=== PATIENT | male | born 1985 | race Caucasian/White ===

== ENCOUNTER 2018-07-21 14:03 | Emergency (ER) | payer OTHER, MEDICAID, SELFPAY ==
[2018-07-21 14:06] VITALS: BP 150/94; PULSE 82; RESP 18; TEMP 36.4; O2SAT 98
--- NOTE | 2018-07-21 14:13 | DI.RAD.S_ITS ---
PROCEDURE: XR WRIST RT MIN 3V INDICATIONS: penetrated by nail. TECHNIQUE: 4 views of the wrist were acquired. COMPARISON: None. FINDINGS: Bones: No fractures or dislocations. No suspicious bony lesions. Scaphoid view: Scaphoid is grossly intact. Soft tissues: No suspicious soft tissue calcifications. IMPRESSION: No acute wrist fracture or dislocation. No radiopaque foreign body is seen. Dictated by: Denis Suarez M.D. on 07/21/2018 at 14:23 Approved by: Denis Suarez M.D. on 07/21/2018 at 14:31
--- NOTE | 2018-07-21 17:06 | ED_ITS ---
HPI - Extremity Injury (Upper) General Chief Complaint: Extremity Injury, Upper Stated Complaint: PUNCTURE WOUND PADMINI NAIL Time Seen by Provider: 07/21/18 14:35 Source: patient Mode of arrival: ambulatory Limitations: no limitations History of Present Illness HPI narrative: Patient is a 32-year-old male here for evaluation of a puncture wound to his right hand. He states that he was reaching for a board when he punctured his right hand with a padmini nail. He states that was sticking out of the border approximately 2 which is. He feels like the whole 2 in went into his hand. He did wash it out afterwards. He is not up-to-date on tetanus. No other injuries reported from the event. Related Data Previous Rx's Medication Instructions Recorded cephalexin [Keflex] 500 mg PO QID 5 Days #20 cap 07/21/18 Allergies Allergy/AdvReac Type Severity Reaction Status Date / Time egg yolk [EGG YOLK] Allergy Unknown Unverified 09/08/17 12:37 penicillin V [PENICILLIN V] Allergy Unknown Unverified 09/08/17 12:37 venom-honey bee Allergy Unknown Unverified 09/08/17 12:37 [BEE VENOM (HONEY BEE)] Review of Systems Constitutional Denies fever(s) Musculoskeletal Comments: Some mild wrist pain Integumentary/Breasts Comments: Puncture wound to the palm of his right hand Neurologic Comments: No change in sensation to the right hand Hematologic/Lymphatic Denies easy bleeding and Denies easy bruising [facility] Medical History Healthy adult (Acute) Social History Smoking Status: Never smoker Social History Smoking Status: Never smoker Exam Initial Vital Signs Initial Vital Signs: Vital Signs Temperature 97.5 F L 07/21/18 14:06 Pulse Rate 82 07/21/18 14:06 Respiratory Rate 18 07/21/18 14:06 Blood Pressure 150/94 H 07/21/18 14:06 Pulse Oximetry 98 07/21/18 14:06 Const General: cooperative, healthy appearing, comfortable, well developed, well groomed and No acute distress Orientation: alert, awake and oriented x3 Cardio Pulses: radial pulses present on the right Skin Other: Pinpoint puncture wound to the palm of the right wrist just distal to the wrist joint. Neuro General: alert, awake and oriented x3 Sensory Exam: no sensory deficits noted Extrem General: normal to inspection, full ROM and capillary refill normal Psych Appearance: grossly normal and well kempt Course Orders Ordered: ED Orders 07/21/18 14:13 XR wrist RT min 3V Stat Discontinued Medications Diphtheria/Tetanus/Acell Pertussis (Adacel) 0.5 ml IM .ONCE ONE Stop: 07/21/18 14:41 Last Admin: 07/21/18 17:13 Dose: 0.5 ml Vital Signs - 8 hr 07/21/18 14:06 Temperature 97.5 F L Pulse Rate 82 Respiratory Rate 18 Blood Pressure 150/94 H Pulse Oximetry 98 MDM - Extremity Injury (Upper) Imaging Data Wrist x-ray: Radiologist's impression: [address] [address] XRay Report Signed Patient: Young Cohn JMR#: [id number] : 1985Acct:[id number] Age/Sex: 32 / MDate of Service: 07/21/18 Loc: ED Accession Number: [id number] Procedure: XR wrist RT min 3V Ordering Provider: David Marques D.O. PROCEDURE: XR WRIST RT MIN 3V INDICATIONS: penetrated by nail. TECHNIQUE: 4 views of the wrist were acquired. COMPARISON: None. FINDINGS: Bones: No fractures or dislocations. No suspicious bony lesions. Scaphoid view: Scaphoid is grossly intact. Soft tissues: No suspicious soft tissue calcifications. IMPRESSION: No acute wrist fracture or dislocation. No radiopaque foreign body is seen. Dictated by: Denis Suarez M.D. on 07/21/2018 at 14:23 Approved by: Denis Suarez M.D. on 07/21/2018 at 14:31 [facility] Narrative Medical decision making narrative: Patient is neurovascular intact. X-ray shows no fractures or foreign bodies. His tetanus was updated. I did prescribe him antibiotics given the fact that this was a dirty wound and it potentially penetrated up to an inch into his skin. He did cleanse the wound prior to arrival. He is allergic to penicillin but will give him a prescription for Keflex. Patient is given return precautions. He expressed understanding and agreement with plan. Discharge Plan Departure Patient Disposition: Home Clinical Impression: Puncture wound of hand, right Qualifiers: Encounter type: initial encounter Foreign body presence: without foreign body Qualified Code(s): S61.431A - Puncture wound without foreign body of right hand, initial encounter Instructions: DI for Puncture Wound Activity Restrictions/Additional Instructions: Keep your hand clean. You can use soap and water. Take antibiotics as directed. Return to the emergency department for any new or worsening symptoms Prescriptions: New cephalexin [Keflex] 500 mg capsule 500 mg PO QID 5 Days Qty: 20 RF: 0
[2018-07-21] MEDS: TET,DIPH,PERTUSS(ACELL),VAC/PF 0.5 ML SYRINGE IM (17:13)
[2018-07-21 17:57] VITALS: BP 137/85; PULSE 97; RESP 20; O2SAT 97
== END 2018-07-21 18:00 | disposition home or self-care (01) ==
PROVIDERS: Emergency Provider Emergency Medicine
DX: S61.431A Puncture wound without foreign body of right hand, initial encounter (principal); W45.0XXA Nail entering through skin, initial encounter
CPT/HCPCS: 73110; 90471; 99282; 99283; 90715

== ENCOUNTER 2018-08-26 09:52 | Observation (INO) | payer OTHER, MEDICAID, SELFPAY ==
[2018-08-26] VITALS (10 sets, daily range): BP systolic 109–147; BP diastolic 50–84; PULSE 63–84; RESP 16–18; TEMP 36.6–36.9; O2SAT 91–100; BMI 34.0
[2018-08-26] MEDS: KETOROLAC 60 MG/2 ML VIAL 30 MG IV (10:52)
[2018-08-26] MEDS: ONDANSETRON 4 MG/2 ML INJ IV ×2 (10:53→15:37)
[2018-08-26 10:58] LABS: Add Manual Diff / Slide Review NO; Basophils Absolute Auto 100 /uL (0-100); Basophils Percent Auto 0.8 % (0-2); Eosinophils Absolute Auto 100 /uL (0-450); Eosinophils Percent Auto 0.6 % (2-4); Hematocrit 43.6 % (41-53); Hemoglobin 15.3 g/dL (13.5-17.5); Lymphocytes Absolute Auto 2900 /uL (1100-4500); Mean Corpuscular HGB Conc 35.1 % (30-36); Mean Corpuscular Hemoglobin 28.7 PG (26-34); Mean Corpuscular Volume 81.8 fL (80-100); Monocytes Absolute Auto 700 /uL (0-900); Monocytes Percent Auto 5.3 % (3-14); Neutrophils Absolute Auto 9900 /uL (1500-7000); Neutrophils Percent Auto 72.3 % (50-75); Platelet Count 504 X10^3/uL (150-400); Red Blood Cell Count 5.33 X10^6/uL (4.5-5.9); Red Cell Distribution Width 13.4 % (11.6-14.8); White Blood Cell Count 13.8 X10^3/uL (4.5-11.0)
[2018-08-26 11:00] LABS: INR 1.1 (0.9-1.3); Prothrombin Time 12.5 SECONDS (10.1-12.7)
[2018-08-26 11:03] LABS: PTT Partial Thromboplastin Tim 31 SECONDS (26.4-36.2)
--- NOTE | 2018-08-26 11:04 | ED.ABDPAIN ---
HPI - Abdominal Pain General Chief Complaint: Abdominal Pain Stated Complaint: abdominal pain Time Seen by Provider: 08/26/18 10:50 Source: patient and family () Mode of arrival: ambulatory Limitations: no limitations History of Present Illness HPI narrative: This is a 32-year-old male comes with complaint of abdominal pain. Patient states he has had symptoms slightly for about 2 weeks but particularly for the last week. Has been mostly in the upper abdomen. States sort of starts bilateral in the ribs and radiates to the middle. Patient states it was sort of coming in waves until last night when it became more constant. And has been increasingly constant and intense. The patient states it feels like somebody is hitting him repeatedly in the belly with a baseball bat. He states it does not radiate to his back. It does not radiate elsewhere. He states that he has been nauseated he has only had a couple episodes of vomiting. He did have a fever of 102 F around Wednesday or Wednesday, he is not aware of any other fever since. Patient has had normal bowel movements with no black or blood. Patient has been had normal urination sometimes a little bit darker because he has not been eating or drinking as much. He has a history of bleeding ulcers at the age of 15, he has had similar pains but much milder over the years. He has not had any past surgical history. He does have a history of asthma and seasonal allergies. He does not smoke, he occasionally drinks alcohol but none recently. No illicit. Related Data Home Medications Medication Instructions Recorded Confirmed Tums 1 tab PO .ONCE 08/26/18 08/26/18 albuterol sulfate 2 puff INHALATION PRN PRN 08/26/18 08/26/18 bismuth subsalicylate 1 dose PO .ONCE 08/26/18 08/26/18 [Pepto-Bismol] cetirizine [Zyrtec] 10 mg PO DAILY 08/26/18 08/26/18 Allergies Allergy/AdvReac Type Severity Reaction Status Date / Time egg yolk [EGG YOLK] Allergy Unknown Verified 08/26/18 10:03 penicillin V [PENICILLIN V] Allergy Unknown Verified 08/26/18 10:03 venom-honey bee Allergy Unknown Verified 08/26/18 10:03 [BEE VENOM (HONEY BEE)] Review of Systems Review of Systems ROS Unobtainable: All systems reviewed & are unremarkable except as noted in HPI and below Constitutional Denies chills, Reports fever(s) (Last week), Denies lethargy and Denies weakness Gastrointestinal Gastrointestinal: Reports abdominal pain, Denies melena, Denies hematochezia, Denies change in bowel habits, Denies diarrhea, Reports nausea, Reports vomiting and Denies hematemesis Genitourinary Denies hematuria, Denies flank pain, Denies penile discharge, Denies urinary frequency and Denies urinary urgency Musculoskeletal Denies back pain Integumentary/Breasts Denies rash and Denies unusual bruising Neurologic Denies weakness [facility] Medical History (Updated 08/26/18 @ 12:28 by Lalita De La Torre DO) Asthma (Chronic) Healthy adult (Acute) Social History Smoking Status: Never smoker Social History (Updated 08/26/18 @ 11:07 by Lalita De La Torre DO) marital status: details: 5 month old, daughter. Born premature corrected is 3 months number of children: 1 Smoking Status: Never smoker alcohol intake: current substance use type: does not use Exam Narrative Exam Narrative: GENERAL: Alert and oriented x three, well-nourished, well-appearing male in moderate distress. patient appears to be quite uncomfortable. HEENT: Head normocephalic, atraumatic, EOMI, pupils reactive, face symmetric, moist mucous membranes NECK: Supple, full range of motion CARDIOVASCULAR: Regular rate and rhythm without murmurs, rubs or gallops. RESPIRATORY: Breath sounds equal bilaterally, no wheezes rales or rhonchi. ABDOMEN: Soft, positive for left and right upper quadrant tenderness. patient has some milder tenderness generalized but is significantly more tender in the upper quadrants. Normoactive bowel sounds all 4 quadrants. No guarding, + rebound, no rigidity, no mass : No CVA tenderness EXTREMITIES: Normal range of motion, no clubbing or edema. Neurovascularly intact NEUROLOGICAL: Cranial nerves II through XII grossly intact. Moving all extremities SKIN: Warm, dry, no petechiae, no rashes or lesions. Initial Vital Signs Initial Vital Signs: Vital Signs Temperature 98.2 F 08/26/18 10:00 Pulse Rate 76 08/26/18 10:00 Respiratory Rate 18 08/26/18 10:00 Blood Pressure 127/84 08/26/18 10:00 Pulse Oximetry 100 08/26/18 10:00 Course Orders Ordered: ED Orders 08/26/18 10:40 Complete Blood Count AUTO DIFF Stat Comprehensive Metabolic Panel Stat Lipase Stat Partial Thromboplastin Time Stat Prothrombin Time INR Stat 08/26/18 11:04 US abdomen complete Stat Sodium Chloride (Normal Saline 0.9%) 1,000 mls @ 125 mls/hr IV BOLUS ONE Stop: 08/26/18 23:41 Last Infusion: 08/26/18 17:54 Dose: 125 mls/hr Admin: 08/26/18 16:23 Dose: 125 mls/hr Discontinued Medications Hydromorphone HCl (Dilaudid) 1 mg IV NOW ONE Stop: 08/26/18 11:48 Last Admin: 08/26/18 11:49 Dose: 1 mg Hydromorphone HCl (Dilaudid) 1 mg IV NOW ONE Stop: 08/26/18 15:36 Last Admin: 08/26/18 15:36 Dose: 1 mg Ciprofloxacin (Cipro) 400 mg in 200 mls @ 200 mls/hr IV NOW ONE Stop: 08/26/18 14:34 Last Infusion: 08/26/18 15:33 Dose: 0 mls/hr Admin: 08/26/18 14:09 Dose: 200 mls/hr Ketorolac Tromethamine (Toradol) 30 mg IV NOW ONE Stop: 08/26/18 10:51 Last Admin: 08/26/18 10:52 Dose: 30 mg Morphine Sulfate (Morphine) 4 mg IV NOW ONE Stop: 08/26/18 11:05 Last Admin: 08/26/18 11:22 Dose: 4 mg Ondansetron HCl (Zofran) 4 mg IV NOW ONE Stop: 08/26/18 10:52 Last Admin: 08/26/18 10:53 Dose: 4 mg Ondansetron HCl (Zofran) 4 mg IV NOW ONE Stop: 08/26/18 15:34 Last Admin: 08/26/18 15:37 Dose: 4 mg Pantoprazole Sodium (Protonix) 40 mg IV NOW ONE Stop: 08/26/18 11:05 Last Admin: 08/26/18 11:23 Dose: 40 mg Vital Signs - 8 hr 08/26/18 11:18 08/26/18 11:40 08/26/18 12:11 Temperature Pulse Rate 76 84 74 Respiratory Rate 16 16 18 Blood Pressure Blood Pressure [Left Arm] 147/84 H 125/73 119/70 Pulse Oximetry 97 97 91 08/26/18 12:43 08/26/18 14:00 08/26/18 16:00 Temperature 98.4 F 98.2 F Pulse Rate 63 84 72 Respiratory Rate 17 16 16 Blood Pressure Blood Pressure [Left Arm] 109/50 L 112/64 118/67 Pulse Oximetry 92 99 99 08/26/18 16:18 08/26/18 17:15 Temperature 98.4 F Pulse Rate 84 Respiratory Rate Blood Pressure 118/64 Blood Pressure [Left Arm] 124/78 Pulse Oximetry 99 MDM - Abdominal Pain Lab Data Attestation: I reviewed the patient's lab results. Result diagrams: 08/26/18 10:40 08/26/18 10:40 Lab Results 08/26/18 08/26/18 08/26/18 Range/Units 10:40 10:40 10:40 WBC 13.8 H (4.5-11.0) X10^3/uL RBC 5.33 (4.5-5.9) X10^6/uL Hgb 15.3 (13.5-17.5) g/dL Hct 43.6 (41-53) % MCV 81.8 (80-100) fL MCH 28.7 (26-34) PG MCHC 35.1 (30-36) % RDW 13.4 (11.6-14.8) % Plt Count 504 H (150-400) X10^3/uL Neut % (Auto) 72.3 (50-75) % Lymph % (Auto) 21.0 L (25-40) % [place] % (Auto) 5.3 (3-14) % Eos % (Auto) 0.6 L (2-4) % Baso % (Auto) 0.8 (0-2) % Neut # (Auto) 9900 H (9365-6009) /uL Lymph # (Auto) 2900 (8251-0700) /uL [place] # (Auto) 700 (0-900) /uL Eos # (Auto) 100 (0-450) /uL Baso # (Auto) 100 (0-100) /uL PT 12.5 (10.1-12.7) SECONDS INR 1.1 (0.9-1.3) APTT 31 (26.4-36.2) SECONDS Sodium 139 (137-145) mmol/L Potassium 4.3 (3.4-5.1) mmol/L Chloride 99 (98-107) mmol/L Carbon Dioxide 28 (22-32) mmol/L BUN 11 (9-20) mg/dL Creatinine 0.90 (0.66-1.25) mg/dL Estimated GFR > 60.0 (>60) mL/min BUN/Creatinine Ratio 12.2 (6-22) Glucose 110 H (70-100) mg/dL Calcium 10.4 H (8.4-10.2) mg/dL Total Bilirubin 0.8 (0.2-1.3) mg/dL AST 22 (17-59) IU/L ALT 30 (21-72) IU/L Alkaline Phosphatase 91 (38-126) U/L Total Protein 8.8 H (6.3-8.2) g/dL Albumin 4.8 (3.5-5.0) g/dL Globulin 4.0 (1.7-4.1) g/dL Albumin/Globulin Ratio 1.2 (1.0-2.8) Lipase 51 (23-300) U/L Point of care testing: Urine Dip Bedside Urine Glucose Negative Bedside Urine Bilirubin - Negative Bedside Urine Ketone - Negative Urine Specific Joseph 1.010 Bedside Urine Occult Blood - Negative Bedside Urine pH 8.0 Bedside Urine Protein - Negative Bedside Urine Urobilinogen - Negative Bedside Urine Nitrite - Negative Bedside Urine Leukocytes - Negative Esterase Imaging Data US - abdomen: Radiologist's impression: Young Cohn 32 M 1985 [place] [address] Ultrasound Report Signed Patient: Young Cohn JMR#: [id number] : 1985Acct:[id number] Age/Sex: 32 / MDate of Service: 08/26/18 Loc: ED Accession Number: [id number] Procedure: US abdomen complete Ordering Provider: Lalita De La Torre D.O. PROCEDURE: US ABDOMEN COMPLETE INDICATIONS: UPPER ABDOMINAL PAIN X 1 WEEK, WORSENING TECHNIQUE: Real-time scanning was performed of the abdominal and retroperitoneal organs, with image documentation. COMPARISON: None. FINDINGS: Liver: Liver is normal in size and homogeneous in echotexture. Gallbladder: Sludge and multiple non-mobile echogenic structures are seen along the wall of gallbladder and measures up to 4 mm in size. Finding could represent small non-mobile stones versus polyps. 1 cm echogenic shadowing structure is noted in gallbladder neck region. Debris is also seen in dependent portion of gallbladder. No pericholecystic fluid is seen. No significant gallbladder wall thickening. Positive sonographic Nguyen's sign is noted. Biliary ducts: Intrahepatic bile ducts are non-dilated. Extrahepatic bile duct caliber is not well-visualized due to overlying bowel gas. Normal is 6-7 mm or less in diameter, or 10 mm or less post-cholecystectomy. Pancreas: Visualized portions of the pancreas are sonographically normal. Spleen: Spleen is normal in size and homogeneous in echotexture. Kidneys: Kidneys are normal in size and echotexture. Right kidney measures 10.4 cm long; left kidney measures 9.9 cm long. No hydronephrosis or nephrolithiasis. No solid masses. Aorta: Visualized aorta is normal in caliber at less than 3 cm. Iliacs: Proximal common iliac arteries are normal in caliber at less than 2.5 cm. IVC: Intrahepatic inferior vena cava is patent. Miscellaneous: No free abdominal fluid. IMPRESSION: #1. Cholelithiasis with positive sonographic Nguyen sign concerning for acute cholecystitis. #2. Common bile duct is not well-visualized due to overlying bowel gas. 1 cm stone in the region of gallbladder neck/proximal common bile duct, choledocholithiasis cannot be excluded. No gross intrahepatic biliary ductal dilatation. Dictated by: Denis Suarez M.D. on 08/26/2018 at 12:05 Approved by: Denis Suarez M.D. on 08/26/2018 at 12:08 [facility] Narrative Medical decision making narrative: Patient receives Zofran and Toradol. He states his nausea is improved. The Toradol has brought his pain from a 10 down to a 9. He states it is he had about 5 or 10 minutes prior to evaluation. But he is still quite uncomfortable. Patient received morphine which did improve his symptoms. lab work shows a white count of 13, otherwise his LFTs, lipase, renal function and rest his labs are normal. Ultrasound does show a 1 cm stone close to the neck They are not able to clearly visualize the common bile duct. They do see sludge as well as some followup sources stones. Patient also has some no pericholecystic fluid. Positive sonographic Nguyen sign. Spoke with Dr. Caputo with General surgery, he accepts patient. Plan to make patient NPO after midnight with clear liquids at this time. Discussed Zosyn but secondary to patient's history of penicillin allergy changed to Cipro and plan for surgery, likely tomorrow. Discussed with patient comfortable with the plan and patient was placed in observation status under Dr. Caputo. Discharge Plan Departure Patient Disposition: Admitted as Observation Clinical Impression: Cholelithiases Discharge Date/Time: 08/26/18 17:55 Interventions: ED Discharge Assessment Last Done: 08/26/18 16:18 Admit Date/Time: 08/26/18 15:28 Admit Provider: Yehuda Caputo
[2018-08-26 11:07] LABS: Alanine Aminotransferase 30 IU/L (21-72); Albumin 4.8 g/dL (3.5-5.0); Albumin Globulin Ratio 1.2 (1.0-2.8); Alkaline Phosphatase 91 U/L (38-126); Aspartate Aminotransferase 22 IU/L (17-59); BUN Creatinine Ratio 12.2 (6-22); Bilirubin Total 0.8 mg/dL (0.2-1.3); Blood Urea Nitrogen 11 mg/dL (9-20); Calcium 10.4 mg/dL (8.4-10.2); Carbon Dioxide 28 mmol/L (22-32); Chloride 99 mmol/L (98-107); Estimated Glomerular Filt Rate > 60.0 mL/min (>60); Glucose 110 mg/dL (70-100); HEMOLYSIS < 15 (0-50); Lipase 51 U/L (23-300); Potassium 4.3 mmol/L (3.4-5.1); Sodium 139 mmol/L (137-145); Total Protein 8.8 g/dL (6.3-8.2)
--- NOTE | 2018-08-26 11:09 | ED_ITS ---
HPI - Abdominal Pain General Chief Complaint: Abdominal Pain Stated Complaint: abdominal pain Time Seen by Provider: 08/26/18 10:50 Source: patient and family () Mode of arrival: ambulatory Limitations: no limitations History of Present Illness HPI narrative: This is a 32-year-old male comes with complaint of abdominal pain. Patient states he has had symptoms slightly for about 2 weeks but particularly for the last week. Has been mostly in the upper abdomen. States sort of starts bilateral in the ribs and radiates to the middle. Patient states it was sort of coming in waves until last night when it became more constant. And has been increasingly constant and intense. The patient states it feels li ke somebody is hitting him repeatedly in the belly with a baseball bat. He states it does not radiate to his back. It does not radiate elsewhere. He states that he has been nauseated he has only had a couple episodes of vomiting. He did have a fever of 102 F around Wednesday or Wednesday, he is not aware of any other fever since. Patient has had normal bowel movements with no black or blood. Patient has been had normal urination sometimes a little bit darker because he has not been eating or drinking as much. He has a history of bleeding ulcers at the age of 15, he has had similar pains but much milder over the years. He has not had any past surgical history. He does have a history of asthma and seasonal allergies. He does not smoke, he occasionally drinks alcohol but none recently. No illicit. Related Data Home Medications Medication Instructions Recorded Confirmed Tums 1 tab PO .ONCE 08/26/18 08/26/18 albuterol sulfate 2 puff INHALATION PRN PRN 08/26/18 08/26/18 bismuth subsalicylate 1 dose PO .ONCE 08/26/18 08/26/18 [Pepto-Bismol] cetirizine [Zyrtec] 10 mg PO DAILY 08/26/18 08/26/18 Allergies Allergy/AdvReac Type Severity Reaction Status Date / Time egg yolk [EGG YOLK] Allergy Unknown Verified 08/26/18 10:03 penicillin V [PENICILLIN V] Allergy Unknown Verified 08/26/18 10:03 venom-honey bee Allergy Unknown Verified 08/26/18 10:03 [BEE VENOM (HONEY BEE)] Review of Systems Review of Systems ROS Unobtainable: All systems reviewed & are unremarkable except as noted in HPI and below Constitutional Denies chills, Reports fever(s) (Last week), Denies lethargy and Denies weakness Gastrointestinal Gastrointestinal: Reports abdominal pain, Denies melena, Denies hematochezia, Denies change in bowel habits, Denies diarrhea, Reports nausea, Reports vomiting and Denies hematemesis Genitourinary Denies hematuria, Denies flank pain, Denies penile discharge, Denies urinary frequency and Denies urinary urgency Musculoskeletal Denies back pain Integumentary/Breasts Denies rash and Denies unusual bruising Neurologic Denies weakness COUNT INCLUDES THE [facility] Medical History (Updated 08/26/18 @ 12:28 by Lalita De La Torre DO) Asthma (Chronic) Healthy adult (Acute) Social History Smoking Status: Never smoker Social History (Updated 08/26/18 @ 11:07 by Lalita De La Torre DO) marital status: details: 5 month old, daughter. Born premature corrected is 3 months number of children: 1 Smoking Status: Never smoker alcohol intake: current substance use type: does not use Exam Narrative Exam Narrative: GENERAL: Alert and oriented x three, well-nourished, well- appearing male in moderate distress. patient appears to be quite uncomfortable. HEENT: Head normocephalic, atraumatic, EOMI, pupils reactive, face symmetric, moist mucous membranes NECK: Supple, full range of motion CARDIOVASCULAR: Regular rate and rhythm without murmurs, rubs or gallops. RESPIRATORY: Breath sounds equal bilaterally, no wheezes rales or rhonchi. ABDOMEN: Soft, positive for left and right upper quadrant tenderness. patient has some milder tenderness generalized but is significantly more tender in the upper quadrants. Normoactive bowel sounds all 4 quadrants. No guarding, + rebound, no rigidity, no mass : No CVA tenderness EXTREMITIES: Normal range of motion, no clubbing or edema. Neurovascularly intact NEUROLOGICAL: Cranial nerves II through XII grossly intact. Moving all extremities SKIN: Warm, dry, no petechiae, no rashes or lesions. Initial Vital Signs Initial Vital Signs: Vital Signs Temperature 98.2 F 08/26/18 10:00 Pulse Rate 76 08/26/18 10:00 Respiratory Rate 18 08/26/18 10:00 Blood Pressure 127/84 08/26/18 10:00 Pulse Oximetry 100 08/26/18 10:00 Course Orders Ordered: ED Orders 08/26/18 10:40 Complete Blood Count AUTO DIFF Stat Comprehensive Metabolic Panel Stat Lipase Stat Partial Thromboplastin Time Stat Prothrombin Time INR Stat 08/26/18 11:04 US abdomen complete Stat Sodium Chloride (Normal Saline 0.9%) 1,000 mls @ 125 mls/hr IV BOLUS ONE Stop: 08/26/18 23:41 Last Infusion: 08/26/18 17:54 Dose: 125 mls/hr Admin: 08/26/18 16:23 Dose: 125 mls/hr Discontinued Medications Hydromorphone HCl (Dilaudid) 1 mg IV NOW ONE Stop: 08/26/18 11:48 Last Admin: 08/26/18 11:49 Dose: 1 mg Hydromorphone HCl (Dilaudid) 1 mg IV NOW ONE Stop: 08/26/18 15:36 Last Admin: 08/26/18 15:36 Dose: 1 mg Ciprofloxacin (Cipro) 400 mg in 200 mls @ 200 mls/hr IV NOW ONE Stop: 08/26/18 14:34 Last Infusion: 08/26/18 15:33 Dose: 0 mls/hr Admin: 08/26/18 14:09 Dose: 200 mls/hr Ketorolac Tromethamine (Toradol) 30 mg IV NOW ONE Stop: 08/26/18 10:51 Last Admin: 08/26/18 10:52 Dose: 30 mg Morphine Sulfate (Morphine) 4 mg IV NOW ONE Stop: 08/26/18 11:05 Last Admin: 08/26/18 11:22 Dose: 4 mg Ondansetron HCl (Zofran) 4 mg IV NOW ONE Stop: 08/26/18 10:52 Last Admin: 08/26/18 10:53 Dose: 4 mg Ondansetron HCl (Zofran) 4 mg IV NOW ONE Stop: 08/26/18 15:34 Last Admin: 08/26/18 15:37 Dose: 4 mg Pantoprazole Sodium (Protonix) 40 mg IV NOW ONE Stop: 08/26/18 11:05 Last Admin: 08/26/18 11:23 Dose: 40 mg Vital Signs - 8 hr 08/26/18 11:18 08/26/18 11:40 08/26/18 12:11 Temperature Pulse Rate 76 84 74 Respiratory Rate 16 16 18 Blood Pressure Blood Pressure [Left Arm] 147/84 H 125/73 119/70 Pulse Oximetry 97 97 91 08/26/18 12:43 08/26/18 14:00 08/26/18 16:00 Temperature 98.4 F 98.2 F Pulse Rate 63 84 72 Respiratory Rate 17 16 16 Blood Pressure Blood Pressure [Left Arm] 109/50 L 112/64 118/67 Pulse Oximetry 92 99 99 08/26/18 16:18 08/26/18 17:15 Temperature 98.4 F Pulse Rate 84 Respiratory Rate Blood Pressure 118/64 Blood Pressure [Left Arm] 124/78 Pulse Oximetry 99 MDM - Abdominal Pain Lab Data Attestation: I reviewed the patient's lab results. Result diagrams: 08/26/18 10:40 08/26/18 10:40 Lab Results 08/26/18 08/26/18 08/26/18 Range/Units 10:40 10:40 10:40 WBC 13.8 H (4.5-11.0) X10^3/uL RBC 5.33 (4.5-5.9) X10^6/uL Hgb 15.3 (13.5-17.5) g/dL Hct 43.6 (41-53) % MCV 81.8 (80-100) fL MCH 28.7 (26-34) PG MCHC 35.1 (30-36) % RDW 13.4 (11.6-14.8) % Plt Count 504 H (150-400) X10^3/uL Neut % (Auto) 72.3 (50-75) % Lymph % (Auto) 21.0 L (25-40) % [place] % (Auto) 5.3 (3-14) % Eos % (Auto) 0.6 L (2-4) % Baso % (Auto) 0.8 (0-2) % Neut # (Auto) 9900 H (2017-1207) /uL Lymph # (Auto) 2900 (6110-2651) /uL [place] # (Auto) 700 (0-900) /uL Eos # (Auto) 100 (0-450) /uL Baso # (Auto) 100 (0-100) /uL PT 12.5 (10.1-12.7) SECONDS INR 1.1 (0.9-1.3) APTT 31 (26.4-36.2) SECONDS Sodium 139 (137-145) mmol/L Potassium 4.3 (3.4-5.1) mmol/L Chloride 99 (98-107) mmol/L Carbon Dioxide 28 (22-32) mmol/L BUN 11 (9-20) mg/dL Creatinine 0.90 (0.66-1.25) mg/dL Estimated GFR > 60.0 (>60) mL/min BUN/Creatinine Ratio 12.2 (6-22) Glucose 110 H (70-100) mg/dL Calcium 10.4 H (8.4-10.2) mg/dL Total Bilirubin 0.8 (0.2-1.3) mg/dL AST 22 (17-59) IU/L ALT 30 (21-72) IU/L Alkaline Phosphatase 91 (38-126) U/L Total Protein 8.8 H (6.3-8.2) g/dL Albumin 4.8 (3.5-5.0) g/dL Globulin 4.0 (1.7-4.1) g/dL Albumin/Globulin Ratio 1.2 (1.0-2.8) Lipase 51 (23-300) U/L Point of care testing: Urine Dip Bedside Urine Glucose Negative Bedside Urine Bilirubin - Negative Bedside Urine Ketone - Negative Urine Specific [place] 1.010 Bedside Urine Occult Blood - Negative Bedside Urine pH 8.0 Bedside Urine Protein - Negative Bedside Urine Urobilinogen - Negative Bedside Urine Nitrite - Negative Bedside Urine Leukocytes - Negative Esterase Imaging Data US - abdomen: Radiologist's impression: Young Cohn 32 M 1985 [address] [address] Ultrasound Report Signed Patient: CohnYoung sanchez JMR#: [id number] : 1985Acct:[id number] Age/Sex: 32 / MDate of Service: 08/26/18 Loc: ED Accession Number: [id number] Procedure: US abdomen complete Ordering Provider: Lalita De La Torre D.O. PROCEDURE: US ABDOMEN COMPLETE INDICATIONS: UPPER ABDOMINAL PAIN X 1 WEEK, WORSENING TECHNIQUE: Real-time scanning was performed of the abdominal and retroperitoneal organs, with image documentation. COMPARISON: None. FINDINGS: Liver: Liver is normal in size and homogeneous in echotexture. Gallbladder: Sludge and multiple non-mobile echogenic structures are seen along the wall of gallbladder and measures up to 4 mm in size. Finding could represent small non-mobile stones versus polyps. 1 cm echogenic shadowing structure is noted in gallbladder neck region. Debris is also seen in dependent portion of gallbladder. No pericholecystic fluid is seen. No significant gallbladder wall thickening. Positive sonographic Nguyen's sign is noted. Biliary ducts: Intrahepatic bile ducts are non-dilated. Extrahepatic bile duct caliber is not well-visualized due to overlying bowel gas. Normal is 6-7 mm or less in diameter, or 10 mm or less post-cholecystectomy. Pancreas: Visualized portions of the pancreas are sonographically normal. Spleen: Spleen is normal in size and homogeneous in echotexture. Kidneys: Kidneys are normal in size and echotexture. Right kidney measures 10.4 cm long; left kidney measures 9.9 cm long. No hydronephrosis or nephrolithiasis. No solid masses. Aorta: Visualized aorta is normal in caliber at less than 3 cm. Iliacs: Proximal common iliac arteries are normal in caliber at less than 2.5 cm. IVC: Intrahepatic inferior vena cava is patent. Miscellaneous: No free abdominal fluid. IMPRESSION: #1. Cholelithiasis with positive sonographic Nguyen sign concerning for acute cholecystitis. #2. Common bile duct is not well-visualized due to overlying bowel gas. 1 cm stone in the region of gallbladder neck/proximal common bile duct, choledocholithiasis cannot be excluded. No gross intrahepatic biliary ductal dilatation. Dictated by: Denis Suarez M.D. on 08/26/2018 at 12:05 Approved by: Denis Suarez M.D. on 08/26/2018 at 12:08 [facility] Narrative Medical decision making narrative: Patient receives Zofran and Toradol. He states his nausea is improved. The Toradol has brought his pain from a 10 down to a 9. He states it is he had about 5 or 10 minutes prior to evaluation. But he is still quite uncomfortable. Patient received morphine which did improve his symptoms. lab work shows a white count of 13, otherwise his LFTs, lipase, renal function and rest his labs are normal. Ultrasound does show a 1 cm stone close to the neck They are not able to clearly visualize the common bile duct. They do see sludge as well as some followup sources stones. Patient also has some no pericholecystic fluid. Positive sonographic Nguyen sign. Spoke with Dr. Caputo with General surgery, he accepts patient. Plan to make patient NPO after midnight with clear liquids at this time. Discussed Zosyn but secondary to patient's history of penicillin allergy changed to Cipro and plan for surgery, likely tomorrow. Discussed with patient comfortable with the plan and patient was placed in observation status under Dr. Caputo. Discharge Plan Departure Patient Disposition: Admitted as Observation Clinical Impression: Cholelithiases Discharge Date/Time: 08/26/18 17:55 Interventions: ED Discharge Assessment Last Done: 08/26/18 16:18 Admit Date/Time: 08/26/18 15:28 Admit Provider: Yehuda Caputo
[2018-08-26] MEDS: MORPHINE 4 MG/ML INJ IV (11:22)
[2018-08-26] MEDS: PANTOPRAZOLE 40 MG VIAL IV (11:23)
[2018-08-26] MEDS: HYDROMORPHONE 1 MG INJ IV ×2 (11:49→15:36)
[2018-08-26] MEDS: CIPROFLOXACIN 400 MG/200 ML PIGGYBACK 200 MG IV (14:09)
[2018-08-26] MEDS: SODIUM CHLORIDE 0.9% 1,000 ML 125 ML IV (16:23)
--- NOTE | 2018-08-26 16:56 | P.HP_ITS ---
History of Present Illness Date Patient Seen: 08/26/18 Time Patient Seen: 16:52 Chief complaint: abdominal pain Narrative: 32-year-old white male patient comes emergency room with 1 week hist ory of right upper quadrant abdominal pain. patient has had this on and off for the past year or so. This was associated early on with some nausea and vomiting. In the emergency department patient has had laboratory work which shows a normal white count normal liver chemistries normal lipase. Ultrasound of the upper abdomen confirms an impacted cystic duct stone or stone in the neck of the gallbladder. There is minimal wall thickening. I have apprised the patient of the situation and recommended laparoscopic cholecystectomy. I explained numerous complications possible and the patient understand and agrees. We will proceed with this operation early tomorrow morning. Patient History Medical History (Updated 08/26/18 @ 12:28 by Lalita De La Torre DO) Asthma (Chronic) Healthy adult (Acute) Social History Smoking Status: Never smoker Family & Social History Safety & Behavioral: Feels Safe in Current Yes Environment Been Physically Hurt or No Threatened By a Person Tobacco & Substance use: Smoking Status Never smoker alcohol intake current alcohol intake frequency a few times a month Substance Use Type does not use Meds Home Medications Medication Instructions Recorded Confirmed Type Tums 1 tab PO .ONCE 08/26/18 08/26/18 History albuterol sulfate 2 puff INHALATION PRN PRN 08/26/18 08/26/18 History bismuth subsalicylate 1 dose PO .ONCE 08/26/18 08/26/18 History [Pepto-Bismol] cetirizine [Zyrtec] 10 mg PO DAILY 08/26/18 08/26/18 History Allergies Allergy/AdvReac Type Severity Reaction Status Date / Time egg yolk [EGG YOLK] Allergy Unknown Verified 08/26/18 10:03 penicillin V [PENICILLIN V] Allergy Unknown Verified 08/26/18 10:03 venom-honey bee Allergy Unknown Verified 08/26/18 10:03 [BEE VENOM (HONEY BEE)] Review of Systems Review of Systems All systems reviewed & are unremarkable except as noted in HPI and below Exam Vital Signs (past 8 hours): - 08/26/18 10:00 08/26/18 11:18 08/26/18 11:40 Temperature 98.2 F Pulse Rate 76 76 84 Respiratory Rate 18 16 16 Blood Pressure 127/84 Blood Pressure [Left Arm] 147/84 H 125/73 Pulse Oximetry 100 97 97 08/26/18 12:11 08/26/18 12:43 08/26/18 14:00 Temperature 98.4 F Pulse Rate 74 63 84 Respiratory Rate 18 17 16 Blood Pressure Blood Pressure [Left Arm] 119/70 109/50 L 112/64 Pulse Oximetry 91 92 99 08/26/18 16:00 08/26/18 16:18 Temperature 98.2 F 98.4 F Pulse Rate 72 84 Respiratory Rate 16 Blood Pressure 118/64 Blood Pressure [Left Arm] 118/67 Pulse Oximetry 99 99 Oxygen Delivery Method Room Air Narrative Exam Narrative: Patient has no clinical sign of jaundice with clear skin and sclerae. Lungs are clear with no rales or wheezes heart regular rhythm no murmur abdominal exam is tender in the right upper quadrant no masses palpated Objective Labs Result Diagrams: 08/26/18 10:40 08/26/18 10:40 Labs: Laboratory Results - last 24 hr 08/26/18 08/26/18 08/26/18 10:40 10:40 10:40 WBC 13.8 H RBC 5.33 Hgb 15.3 Hct 43.6 MCV 81.8 MCH 28.7 MCHC 35.1 RDW 13.4 Plt Count 504 H Neut % (Auto) 72.3 Lymph % (Auto) 21.0 L [place] % (Auto) 5.3 Eos % (Auto) 0.6 L Baso % (Auto) 0.8 Neut # (Auto) 9900 H Lymph # (Auto) 2900 [place] # (Auto) 700 Eos # (Auto) 100 Baso # (Auto) 100 PT 12.5 INR 1.1 APTT 31 Sodium 139 Potassium 4.3 Chloride 99 Carbon Dioxide 28 BUN 11 Creatinine 0.90 Estimated GFR > 60.0 BUN/Creatinine Ratio 12.2 Glucose 110 H Calcium 10.4 H Total Bilirubin 0.8 AST 22 ALT 30 Alkaline Phosphatase 91 Total Protein 8.8 H Albumin 4.8 Globulin 4.0 Albumin/Globulin Ratio 1.2 Lipase 51 Assessment & Plan Assessment & Plan narrative: Plan is to admit patient to hospital is received intravenous antibiotic therapy have a clear liquid diet tonight and NPO after midnight he will undergo laparoscopic cholecystectomy in the morning.
[2018-08-26] MEDS: MORPHINE 2 MG/ML INJ IV (19:41)
[2018-08-27] VITALS (18 sets, daily range): BP systolic 112–158; BP diastolic 58–97; PULSE 67–103; RESP 10–23; TEMP 36.4–37.3; O2SAT 91–99
--- NOTE | 2018-08-27 | PATH_ITS ---
[facility] Accession Number: [id number] . 01 Material submitted: . GALLBLADDER AND CONTENTS . 02 Diagnosis: Gallbladder: Cholelithiasis with associated chronic cholecystitis. Small amount of attached normal-appearing liver tissue. I/08/31/2018 . 02 Electronically signed: . Marito Valera MD, Pathologist NPI- [id number] . 01 Gross description: . Received in formalin, labeled gallbladder and contents, is an opened gallbladder (length-6.8 cm, diameter-3.2 cm) with green smooth shiny serosa and a patent cystic duct. No lymph nodes are identified. The lumen contains dark green gelatinous bile and multiple bright yellow gritty calculi (3.5 x 1.8 by less than 0.1 cm). A piece of ulrich spongy hepatic tissue (1.3 x 0.6 x 0.4 cm) is identified attached to the fundus. The mucosa is green, smooth and flat. The wall is up to 0.1 cm thick. No nodules, masses or lesions are identified. Section code: (A1) cystic duct resection margin and two serial sections from the body; (A2) two longitudinal sections from the fundus; (A3) hepatic tissue, serially sectioned, entirely submitted. ([id number]) /MRV . 02 Pathologist provided ICD-10: K80.64 . 02 CPT . 715325 Performed at: 01 [facility] [address] [address], [place], [place] [id number] MD Reid Perez MD Phone: [phone] Performed at: 02 [facility] [address] [place], [place] [id number] MD Madai Leal MD Phone: [phone]
[2018-08-27] MEDS: MORPHINE 2 MG/ML INJ IV ×3 (00:09→17:31)
[2018-08-27] MEDS: SODIUM CHLORIDE 0.9% 1,000 ML 100 ML IV ×2 (01:15→12:59)
--- NOTE | 2018-08-27 04:21 | PC.NURSE ---
pt AO and receptive to care. c/o upper abdominal pain and ranges from 6-8/10. Administering 2mg, IV Morphine for pain. Patient is able to tolerate pain for 3hours than asks for pain medications. Since it is ordered Q4 we are utilizing warm blankets and distraction to make it until 4 hours (not really assisting). Hypoactive bowel tones and abdomen is tender to the touch. pt is IND in room and communicating when and how much he is voiding (so far 215ml at 0424). pt has been briefed on pre-op consent needs and is expected to have a lap cholecystectomy at [address] Wilder.
--- NOTE | 2018-08-27 07:59 | PC.NURSE ---
Addendum entered by Satnam Miller R.N. 08/27/18 09:56: Pt continues in OR at the present time. Original Note: Pt alert and oriented anticipating Surgery at 09:00. Family is now in room. Consent signed.
[2018-08-27] MEDS: LACTATED RINGERS 1,000 ML 42 ML IV ×2 (08:58→11:27)
--- NOTE | 2018-08-27 10:15 | SUR.OPER ---
Supine on padded OR bed, head on pillow, arms secured on padded arm boards at <90 degrees abduction, legs uncrossed, safety belt at thigh, tape over blanket over lower legs.
[2018-08-27] MEDS: BUPIVACAINE 0.5% W/ EPI (PF) VIAL 30 ML INJ (10:19)
[2018-08-27] MEDS: NEOMYCIN/POLYMYXIN/BACITRA UD OINT 1 EACH TOP (10:19)
[2018-08-27] MEDS: fentaNYL 100 MCG/2 ML INJ 50 MCG IV ×4 (10:45→11:05)
--- NOTE | 2018-08-27 10:45 | PM.OP.1 ---
Operative Date/Time/Diagnoses Date of procedure: 08/27/18 Time of procedure: 10:45 Pre-op diagnosis: Acute cholecystitis cholelithiasis Post-op diagnosis: same Procedure & Clinicians Procedure: Laparoscopic cholecystectomy Same procedure as scheduled: Yes Surgeon: Yehuda Caputo Click Yes if Unassisted: Yes Anesthesia Type: General Operative Notes Findings: Moderate acute cholecystitis with cholelithiasis Closure Type: primary Estimated Blood Loss (mL): 25 Blood products transfused: none Procedure in detail: The patient was properly identified during surgical pause under general endotracheal anesthesia prepped and draped in a sterile fashion with exposure of the right upper quadrant of the abdomen. 5 mm incisions made to the right of the umbilicus. Optiview to port was placed into the peritoneal cavity under direct vision and a pneumoperitoneum safely established. Three additional right subcostal ports were placed under direct vision. Gallbladder was elevated was acutely inflamed. The cholecystoduodenal ligament was dissected down to the critical view of Calot's triangle clearly showing cystic duct cystic artery and Calot's node. Cystic artery was closed with multiple clips divided leaving several with the patient there was no bleeding. the cystic duct was closed with multiple clips divided leaving several with the patient there was no bile leak. gallbladder was then elevated and dissected away from the liver bed with meticulous hemostasis using the Bovie electrocautery. The gallbladder and its contents removed. Operative site irrigated with a L of sterile saline aspirated dry there is no bleeding and no bile leak. trocars removed under direct vision there was no bleeding the skin stable sterile dressings applied the procedures very well tolerated and dictation on Young Cohn Condition: stable
[2018-08-27] MEDS: HYDROMORPHONE 2 MG INJ 0.5 MG IV ×4 (10:55→11:24)
[2018-08-27] MEDS: LORazepam 2 MG/ML SYRINGE 0.5 MG IV (11:14)
--- NOTE | 2018-08-27 11:39 | SUR.PHASEI ---
behaviors indicate pain relief, pt able to doze off to sleep, IV patent and infusing, warm blanket on right shoulder for comfort, ice pack to abdomen, abdomen band aids dry and intact with small dots of drainage noted , abdomen remains soft and non distended, pt on oxygen at 2LNC. report called to LATESHA Sanders
--- NOTE | 2018-08-27 16:18 | CM.IDA ---
Discharge Planning/Care Management CM Discharge Assessment Start: 08/27/18 16:12 Freq: Status: Active Protocol: Document 08/27/18 16:12 GAURAV (Rec: 08/27/18 16:18 GAURAV [id number]) Discharge Planning Assessment Assigned Jewel Sorter ALICIA Russell DPOA/Assigned Designee Name Erin Bach, Partner Contact Information [phone] Advance Directives? No History Provided By Patient Medical Record Prior Living Arrangements House Household Members significant other Type of transporation used prior to Drives own vehicle admit Independent with ADL's Yes Is patient alert and oriented? Yes Comment Works software quality manager Barriers to Discharge No Comment Pt went to the OR today for Eduardo [facility] w/ Dr Wilder, general surgeon. Payer: [employer]/Medicaid. Pt off the floor today. per chart review, pt will return home w/partner upon medical clearance with no expected barriers or DC needs. no SW needs expected. This [employer] available in case DC needs or concerns arise. ALICIA Apple Discharge Plan Home Transportation Arrangement Family Referrals Initiated None needed Review Status In Process
[2018-08-27] MEDS: OXYCODONE/ACETAMINOPHEN 5/325 TABLET 2 TAB PO ×2 (17:21→21:18)
[2018-08-28 00:06] VITALS: BP 106/60; PULSE 83; RESP 16; TEMP 36.7; O2SAT 97
[2018-08-28] MEDS: OXYCODONE/ACETAMINOPHEN 5/325 TABLET 2 TAB PO ×3 (02:08→12:41)
[2018-08-28 04:27] VITALS: BP 119/58; PULSE 78; RESP 16; TEMP 36.7; O2SAT 97
--- NOTE | 2018-08-28 04:56 | PC.NURSE ---
Pain managed with percocets. Patient rings when he needs meds.
--- NOTE | 2018-08-28 05:22 | PC.NURSE ---
Patient has not voided yet this shift, taking percocets for pain. Will check with patient at shift end if he needs t0 go
[2018-08-28 07:50] VITALS: BP 112/53; PULSE 81; RESP 20; TEMP 36.6; O2SAT 96
--- NOTE | 2018-08-28 09:29 | PC.NURSE ---
Addendum entered by Satnam Miller R.N. 08/28/18 13:26: Pt discharged to care of S.O. Pt understands instructions understands to call office in morning to make appt. for this Wednesday Original Note: Pt alert and oriented anticipates going home today. Pain management planned and coverage discussed through the day. Dressing in tact. IV fluids d/c'd site H.L.'d Dr Caputo in to see Pt and discuss discharge.
--- NOTE | 2018-08-28 09:34 | PM.PN.1 ---
Subjective Date Patient Seen: 08/28/18 Time Patient Seen: 09:34 Interval history: Patient is 1 day postop laparoscopic cholecystectomy for acute cholecystitis cholelithiasis is doing well tolerating his diet no nausea vomiting minimal abdominal discomfort patient be discharged today Exam Vital Signs (past 8 hours): - 08/28/18 04:27 Temperature 98.1 F Pulse Rate 78 Respiratory Rate 16 Blood Pressure 119/58 L Pulse Oximetry 97 Oxygen Delivery Method Nasal Cannula Oxygen Flow Rate 0 Narrative Exam Narrative: Patient is afebrile skin and sclerae are clear abdomen is soft small dressings are dry and intact Objective Labs Result Diagrams: 08/26/18 10:40 08/26/18 10:40 Assessment & Plan Assessment & Plan narrative: Patient is able to be discharged today following a laparoscopic cholecystectomy. He will return to the clinic this week to have his dilip removed. he is given no prescriptions. He will take ibuprofen for pain any abdominal pain.
--- NOTE | 2018-08-28 09:39 | P.DS_ITS ---
History of Present Illness Chief complaint: abdominal pain Narrative: 32-year-old white male patient comes emergency room with 1 week histo ry of right upper quadrant abdominal pain. patient has had this on and off for the past year or so. This was associated early on with some nausea and vomiting. In the emergency department patient has had laboratory work which shows a normal white count normal liver chemistries normal lipase. Ultrasound of the upper abdomen confirms an impacted cystic duct stone or stone in the neck of the gallbladder. There is minimal wall thickening. I have apprised the patient of the situation and recommended laparoscopic cholecystectomy. I explained numerous complications possible and the patient understand and agrees. We will proceed with this operation early tomorrow morning. Discharge Providers Date of admission: 08/26/18 15:28 Discharge Date: 08/28/18 Discharge provider: Yehuda Caputo MD Summary Discharge Diagnosis: Acute cholecystitis cholelithiasis Hospital Course: Patient had a laparoscopic cholecystectomy shortly after admission to the hospital. He is now 1 day postop doing very well. operative findings were acute cholecystitis cholelithiasis. He is now tolerating a regular diet. No nausea or vomiting. He has minimal abdominal discomfort. Status at Discharge Cognitive/behavioral status at discharge: oriented Functional status at discharge: independent ambulation Overall status at discharge: patient is back to baseline Time Spent with Patient Greater than 30 minutes Exam Vital Signs (past 8 hours): - 08/28/18 04:27 Temperature 98.1 F Pulse Rate 78 Respiratory Rate 16 Blood Pressure 119/58 L Pulse Oximetry 97 Oxygen Delivery Method Nasal Cannula Oxygen Flow Rate 0 Objective Labs Result Diagrams: 08/26/18 10:40 08/26/18 10:40 Discharge Plan Discharge Plan Discharge Problem: Cholelithiases Patient Disposition: Home Discharge comment: Return to the clinic this Wednesday to have dilip removed. Discharge Med Rec/Prescriptions Prescriptions: Continued cetirizine [Zyrtec] 10 mg Tablet 10 mg PO DAILY RF: 0 bismuth subsalicylate [Pepto-Bismol] 262 mg/15 mL Suspension 1 dose PO .ONCE RF: 0 albuterol sulfate 90 mcg/actuation Hfa Aerosol Inhaler 2 puff INHALATION PRN PRN (Reason: Shortness Of Breath) RF: 0 Tums 1 tab PO .ONCE RF: 0 Discharge Data Attending Provider: Yehuda Caputo Admit Date/Time: 08/26/18 15:28
== END 2018-08-28 13:15 | disposition home or self-care (01) ==
LOC: ED 13:55 → AC 15:30
PROVIDERS: Admitting Provider Surgery; Emergency Provider Emergency Medicine; Visit Provider Surgery
PROC: 0FT44ZZ Resection of Gallbladder, Percutaneous Endoscopic Approach (ICD-10-PCS; CPT 47562; principal; 2018-08-27 10:30)
DX: K80.64 Calculus of gallbladder and bile duct with chronic cholecystitis without obstruction (principal); R10.9 Unspecified abdominal pain; J45.909 Unspecified asthma, uncomplicated
CPT/HCPCS: 47562; 36415; 36591; 76700; 80053; 81003; 83690; 85025; 85610; 85730; 96361; 96365; 96375; 96376; 99219; 99284; 99285; G0378; C9113; J0131; J0744; J1100; J1170; J1885; J2060; J2250; J2270; J2405; J2704; J3010

== ENCOUNTER 2018-09-02 14:29 | Emergency (ER) | payer OTHER, MEDICAID, SELFPAY ==
[2018-08-29 09:44] VITALS: BMI 34.0
[2018-09-02 14:30] VITALS: BP 131/93; PULSE 99; RESP 24; TEMP 37.2; O2SAT 97; BMI 33.9
[2018-09-02] MEDS: ONDANSETRON 4 MG/2 ML INJ IV ×2 (14:57→17:26)
[2018-09-02 15:04] LABS: Add Manual Diff / Slide Review NO; Basophils Absolute Auto 100 /uL (0-100); Basophils Percent Auto 0.7 % (0-2); Eosinophils Absolute Auto 200 /uL (0-450); Eosinophils Percent Auto 1.1 % (2-4); Hematocrit 45.9 % (41-53); Hemoglobin 15.2 g/dL (13.5-17.5); Lymphocytes Absolute Auto 2400 /uL (1100-4500); Lymphocytes Percent Auto 15.5 % (25-40); Mean Corpuscular Hemoglobin 27.6 PG (26-34); Mean Corpuscular Volume 83.4 fL (80-100); Monocytes Absolute Auto 1000 /uL (0-900); Monocytes Percent Auto 6.4 % (3-14); Neutrophils Absolute Auto 12100 /uL (1500-7000); Neutrophils Percent Auto 76.3 % (50-75); Platelet Count 471 X10^3/uL (150-400); Red Cell Distribution Width 13.7 % (11.6-14.8); White Blood Cell Count 15.8 X10^3/uL (4.5-11.0)
[2018-09-02 15:05] LABS: INR 1.1 (0.9-1.3); Prothrombin Time 12.4 SECONDS (10.1-12.7)
[2018-09-02 15:07] LABS: PTT Partial Thromboplastin Tim 28 SECONDS (26.4-36.2)
[2018-09-02 15:16] LABS: Alanine Aminotransferase 37 IU/L (21-72); Albumin 4.9 g/dL (3.5-5.0); Albumin Globulin Ratio 1.3 (1.0-2.8); Alkaline Phosphatase 102 U/L (38-126); Aspartate Aminotransferase 22 IU/L (17-59); BUN Creatinine Ratio 17.5 (6-22); Bilirubin Total 0.8 mg/dL (0.2-1.3); Blood Urea Nitrogen 14 mg/dL (9-20); Calcium 10.2 mg/dL (8.4-10.2); Carbon Dioxide 26 mmol/L (22-32); Chloride 99 mmol/L (98-107); Estimated Glomerular Filt Rate > 60.0 mL/min (>60); Globulin 3.9 g/dL (1.7-4.1); Glucose 99 mg/dL (70-100); HEMOLYSIS < 15 (0-50); Lipase 48 U/L (23-300); Potassium 4.3 mmol/L (3.4-5.1); Sodium 141 mmol/L (137-145); Total Protein 8.8 g/dL (6.3-8.2)
[2018-09-02 15:17] LABS: Lactate (Lactic Acid) 1.9 mmol/L (0.7-2.1)
--- NOTE | 2018-09-02 15:48 | DI.CT.S_ITS ---
PROCEDURE: CT ABDOMEN PELVIS W CON INDICATIONS: recent lap quique, abdominal pain TECHNIQUE: After the administration of oral and intravenous contrast, 5 mm thick sections acquired from the diaphragms to the symphysis. 5 mm thick coronal and sagittal reformats were performed. For radiation dose reduction, the following was used: automated exposure control, adjustment of mA and/or kV according to patient size. COMPARISON: None. FINDINGS: Image quality: Excellent. ABDOMEN: Lung bases: Lung bases are clear. Heart size is normal. Solid organs: Liver is normal in size and enhancement. Gallbladder is surgically absent. Biliary system is non-dilated. Pancreas enhances normally. Spleen is normal in size and enhancement. No adrenal nodules. Kidneys are normal in size and enhancement, without hydronephrosis. Peritoneum and bowel: Stomach, small bowel, and colon loops are normal in caliber and wall thickness. No free fluid or air. The visualized appendix is normal. Nodes and vessels: No retroperitoneal or mesenteric adenopathy. Aorta and inferior vena cava are normal in caliber. Miscellaneous: No ventral hernias. PELVIS: Genitourinary: Bladder wall thickness is normal. Miscellaneous: No inguinal hernias or adenopathy. Bones: No suspicious bony lesions. No vertebral body compression fractures. IMPRESSION: 1. No acute disease process. 2. The appendix is normal. 3. No free fluid or free air. 4. No dilated loops of bowel. 5. Status post cholecystectomy. Dictated by: Karyn Pierson MD, PhD on 09/02/2018 at 16:46 Approved by: Karyn Pierson MD, PhD on 09/02/2018 at 16:52
[2018-09-02 15:49] LABS: Procalcitonin < 0.05 ng/mL (<0.5)
--- NOTE | 2018-09-02 16:45 | ED.ABDPAIN ---
HPI - Abdominal Pain <Phoebe Hoskins PA-C - Last Filed: 09/02/18 22:05> General Chief Complaint: Abdominal Pain Stated Complaint: stomach pain Time Seen by Provider: 09/02/18 15:48 Source: patient Mode of arrival: ambulatory Limitations: no limitations History of Present Illness HPI narrative: This 32-year-old male who is six days status post lap quique is sent by Dr. Hernandez for further evaluation of abdominal pain and nausea. He states that he seemed to be doing fine for the 1st few days after hospital discharge, but 48 hours ago developed nausea and pain. He states that there is some constant discomfort but pain and nausea worsen in waves. He states he has been vomiting each morning at 5:00 a.m., but nausea last throughout the day. He has tried to eat bland food but states a lot of that comes up in the morning. He states abdominal pain is fairly diffuse but more noticeable on the right side. He denies any flank pain. He states he had a small bowel movement today and a little bit of diarrhea prior. No blood in the stools. He denies any dysuria or hematuria. He denies any other recent illness or known exposures. Dr. Hernandez wanted to evaluate for postoperative complications and unable to get CT as an outpatient so sent here for evaluation. Patient has been taking ibuprofen at home, last a couple of days ago since he has not been able to keep down food. He does not have other pain or nausea medication at home and states he did not need this initially Related Data Home Medications Medication Instructions Recorded Confirmed Tums 1 tab PO .ONCE 08/26/18 08/26/18 albuterol sulfate 2 puff INHALATION PRN PRN 08/26/18 08/26/18 bismuth subsalicylate 1 dose PO .ONCE 08/26/18 08/26/18 [Pepto-Bismol] cetirizine [Zyrtec] 10 mg PO DAILY 08/26/18 08/26/18 ibuprofen 800 mg tablet 800 mg PO BID 09/02/18 09/02/18 Previous Rx's Medication Instructions Recorded ondansetron 4 mg PO Q8H PRN #12 tab 09/02/18 oxycodone-acetaminophen 1 tab PO Q4-6H PRN #12 tab 09/02/18 Allergies Allergy/AdvReac Type Severity Reaction Status Date / Time egg yolk [EGG YOLK] Allergy Unknown Verified 09/02/18 13:52 penicillin V [PENICILLIN V] Allergy Unknown Verified 09/02/18 13:52 venom-honey bee Allergy Unknown Verified 09/02/18 13:52 [BEE VENOM (HONEY BEE)] hornet venom Allergy Verified 09/02/18 14:49 Review of Systems <Phoebe Hoskins PA-C - Last Filed: 09/02/18 22:05> Review of Systems ROS Unobtainable: All systems reviewed & are unremarkable except as noted in HPI and below PFSH <Phoebe Hoskins PA-C - Last Filed: 09/02/18 22:05> Medical History (Updated 09/02/18 @ 19:01 by Phoebe Hoskins PA-C) Asthma (Chronic) Healthy adult (Chronic) Surgical History (Updated 09/02/18 @ 17:30 by Phoebe Hoskins PA-C) Hx laparoscopic cholecystectomy (Acute) Social History marital status: details: 5 month old, daughter. Born premature corrected is 3 months number of children: 1 household members: significant other Smoking Status: Never smoker alcohol intake: current substance use type: does not use Social History marital status: details: 5 month old, daughter. Born premature corrected is 3 months number of children: 1 household members: significant other Smoking Status: Never smoker alcohol intake: current substance use type: does not use Exam <Phoebe Hoskins PA-C - Last Filed: 09/02/18 22:05> Narrative Exam Narrative: GENERAL APPEARANCE: Patient sitting comfortably, in no distress. HEENT: PERRL, EOMI, no scleral icterus NECK: Supple LUNGS: Clear to auscultation bilaterally. HEART: Rate and rhythm regular, normal S1 and S2, no S3 or S4. ABDOMEN: Soft, nondistended, bowel sounds present x 4 quadrants, no masses palpable, no hepatosplenomegaly. moderate generalized tenderness to palpation most prominent on the right midline to lower quadrants, less in the left lower quadrant. No guarding or rebound. No CVAT EXTREMITIES: No edema DERMATOLOGIC: No jaundice or exanthem. Surgical incision sites clean, dry, and intact, normal skin surrounding NEUROLOGIC: Alert and oriented with normal speech and coordination Initial Vital Signs Initial Vital Signs: Vital Signs Temperature 99.0 F 09/02/18 14:30 Pulse Rate 99 H 09/02/18 14:30 Respiratory Rate 24 09/02/18 14:30 Blood Pressure 131/93 H 09/02/18 14:30 Pulse Oximetry 97 09/02/18 14:30 <Lalita De La Torre DO - Last Filed: 09/03/18 18:05> Initial Vital Signs Initial Vital Signs: Vital Signs Temperature 99.0 F 09/02/18 14:30 Pulse Rate 99 H 09/02/18 14:30 Respiratory Rate 24 09/02/18 14:30 Blood Pressure 131/93 H 09/02/18 14:30 Pulse Oximetry 97 09/02/18 14:30 Course <Phoebe Hoskins PA-C - Last Filed: 09/02/18 22:05> Additional Information: The patient is feeling improved at the time of discharge, tolerating crackers and water. He did not require opioid pain medication while here in the department but was given a prescription for oxycodone/acetaminophen to have at home if needed for the weekend along with Zofran. Advised on return precautions and he will call Dr. Hernandez's office on Wednesday. Orders Ordered: Discontinued Medications Sodium Chloride (Normal Saline 0.9%) 1,000 mls @ 1,000 mls/hr IV BOLUS ONE Stop: 09/02/18 15:46 Last Infusion: 09/02/18 17:49 Dose: 0 mls/hr Admin: 09/02/18 16:53 Dose: 1,000 mls/hr Ketorolac Tromethamine (Toradol) 30 mg IV NOW ONE Stop: 09/02/18 17:20 Last Admin: 09/02/18 17:25 Dose: 30 mg Ondansetron HCl (Zofran) 4 mg IV NOW ONE Stop: 09/02/18 14:54 Last Admin: 09/02/18 14:57 Dose: 4 mg Ondansetron HCl (Zofran) 4 mg IV NOW ONE Stop: 09/02/18 17:20 Last Admin: 09/02/18 17:26 Dose: 4 mg Vital Signs - 8 hr 09/02/18 14:30 09/02/18 17:30 09/02/18 18:30 Temperature 99.0 F Pulse Rate 99 H 93 H 92 H Respiratory Rate 24 18 18 Blood Pressure 131/93 H Blood Pressure [Right Arm] 116/54 L 118/69 Pulse Oximetry 97 94 99 09/02/18 19:00 09/02/18 19:12 Temperature Pulse Rate 88 94 H Respiratory Rate 18 Blood Pressure 109/61 Blood Pressure [Right Arm] 109/61 Pulse Oximetry 97 98 <Lalita De La Torre DO - Last Filed: 09/03/18 18:05> Orders Ordered: Discontinued Medications Sodium Chloride (Normal Saline 0.9%) 1,000 mls @ 1,000 mls/hr IV BOLUS ONE Stop: 09/02/18 15:46 Last Infusion: 09/02/18 17:49 Dose: 0 mls/hr Admin: 09/02/18 16:53 Dose: 1,000 mls/hr Ketorolac Tromethamine (Toradol) 30 mg IV NOW ONE Stop: 09/02/18 17:20 Last Admin: 09/02/18 17:25 Dose: 30 mg Ondansetron HCl (Zofran) 4 mg IV NOW ONE Stop: 09/02/18 14:54 Last Admin: 09/02/18 14:57 Dose: 4 mg Ondansetron HCl (Zofran) 4 mg IV NOW ONE Stop: 09/02/18 17:20 Last Admin: 09/02/18 17:26 Dose: 4 mg Vital Signs - 8 hr 09/02/18 14:30 09/02/18 17:30 09/02/18 18:30 Temperature 99.0 F Pulse Rate 99 H 93 H 92 H Respiratory Rate 24 18 18 Blood Pressure 131/93 H Blood Pressure [Right Arm] 116/54 L 118/69 Pulse Oximetry 97 94 99 09/02/18 19:00 09/02/18 19:12 Temperature Pulse Rate 88 94 H Respiratory Rate 18 Blood Pressure 109/61 Blood Pressure [Right Arm] 109/61 Pulse Oximetry 97 98 MDM - Abdominal Pain <Phoebe Hoskins PA-C - Last Filed: 09/02/18 22:05> Lab Data Attestation: I reviewed the patient's lab results. Result diagrams: 09/02/18 14:40 09/02/18 14:40 Lab Results 09/02/18 09/02/18 09/02/18 Range/Units 14:40 14:40 14:40 WBC 15.8 H (4.5-11.0) X10^3/uL RBC 5.50 (4.5-5.9) X10^6/uL Hgb 15.2 (13.5-17.5) g/dL Hct 45.9 (41-53) % MCV 83.4 (80-100) fL MCH 27.6 (26-34) PG MCHC 33.0 (30-36) % RDW 13.7 (11.6-14.8) % Plt Count 471 H (150-400) X10^3/uL Neut % (Auto) 76.3 H (50-75) % Lymph % (Auto) 15.5 L (25-40) % [place] % (Auto) 6.4 (3-14) % Eos % (Auto) 1.1 L (2-4) % Baso % (Auto) 0.7 (0-2) % Neut # (Auto) 98770 H (8996-0007) /uL Lymph # (Auto) 2400 (3442-4155) /uL [place] # (Auto) 1000 H (0-900) /uL Eos # (Auto) 200 (0-450) /uL Baso # (Auto) 100 (0-100) /uL PT 12.4 (10.1-12.7) SECONDS INR 1.1 (0.9-1.3) APTT 28 D (26.4-36.2) SECONDS Sodium (137-145) mmol/L Potassium (3.4-5.1) mmol/L Chloride (98-107) mmol/L Carbon Dioxide (22-32) mmol/L BUN (9-20) mg/dL Creatinine (0.66-1.25) mg/dL Estimated GFR (>60) mL/min BUN/Creatinine Ratio (6-22) Glucose (70-100) mg/dL Lactate (0.7-2.1) mmol/L Calcium (8.4-10.2) mg/dL Total Bilirubin (0.2-1.3) mg/dL AST (17-59) IU/L ALT (21-72) IU/L Alkaline Phosphatase (38-126) U/L Total Protein (6.3-8.2) g/dL Albumin (3.5-5.0) g/dL Globulin (1.7-4.1) g/dL Albumin/Globulin Ratio (1.0-2.8) Lipase (23-300) U/L Procalcitonin < 0.05 (<0.5) ng/mL 09/02/18 09/02/18 Range/Units 14:40 14:40 WBC (4.5-11.0) X10^3/uL RBC (4.5-5.9) X10^6/uL Hgb (13.5-17.5) g/dL Hct (41-53) % MCV (80-100) fL MCH (26-34) PG MCHC (30-36) % RDW (11.6-14.8) % Plt Count (150-400) X10^3/uL Neut % (Auto) (50-75) % Lymph % (Auto) (25-40) % [place] % (Auto) (3-14) % Eos % (Auto) (2-4) % Baso % (Auto) (0-2) % Neut # (Auto) (4832-5984) /uL Lymph # (Auto) (2166-6452) /uL [place] # (Auto) (0-900) /uL Eos # (Auto) (0-450) /uL Baso # (Auto) (0-100) /uL PT (10.1-12.7) SECONDS INR (0.9-1.3) APTT (26.4-36.2) SECONDS Sodium 141 (137-145) mmol/L Potassium 4.3 (3.4-5.1) mmol/L Chloride 99 (98-107) mmol/L Carbon Dioxide 26 (22-32) mmol/L BUN 14 (9-20) mg/dL Creatinine 0.80 (0.66-1.25) mg/dL Estimated GFR > 60.0 (>60) mL/min BUN/Creatinine Ratio 17.5 (6-22) Glucose 99 (70-100) mg/dL Lactate 1.9 (0.7-2.1) mmol/L Calcium 10.2 (8.4-10.2) mg/dL Total Bilirubin 0.8 (0.2-1.3) mg/dL AST 22 (17-59) IU/L ALT 37 (21-72) IU/L Alkaline Phosphatase 102 (38-126) U/L Total Protein 8.8 H (6.3-8.2) g/dL Albumin 4.9 (3.5-5.0) g/dL Globulin 3.9 (1.7-4.1) g/dL Albumin/Globulin Ratio 1.3 (1.0-2.8) Lipase 48 (23-300) U/L Procalcitonin (<0.5) ng/mL Point of care testing: Urine Dip Bedside Urine Glucose Negative Bedside Urine Bilirubin - Negative Bedside Urine Ketone - Negative Urine Specific [place] 1.010 Bedside Urine Occult Blood - Negative Bedside Urine pH 7.5 Bedside Urine Protein - Negative Bedside Urine Urobilinogen - Negative Bedside Urine Nitrite - Negative Bedside Urine Leukocytes - Negative Esterase Imaging Data CT scan - abdomen: Radiologist's impression: 26 Phoebe Hoskins PA-C Find Patient Imaging Young Cohn 32 M 1985 ACTIVITY DATE EXAM STATUS AUTHOR 09/02/18 15:48 [place] [address] CT Scan Report Signed Patient: Young Cohn R#: [id number] : 1985Acct:[id number] Age/Sex: 32 / MDate of Service: 09/02/18 Loc: ED Accession Number: [id number] Procedure: CT abdomen pelvis w con Ordering Provider: Lalita De La Torre D.O. PROCEDURE: CT ABDOMEN PELVIS W CON INDICATIONS: recent lap quique, abdominal pain TECHNIQUE: After the administration of oral and intravenous contrast, 5 mm thick sections acquired from the diaphragms to the symphysis. 5 mm thick coronal and sagittal reformats were performed. For radiation dose reduction, the following was used: automated exposure control, adjustment of mA and/or kV according to patient size. COMPARISON: None. FINDINGS: Image quality: Excellent. ABDOMEN: Lung bases: Lung bases are clear. Heart size is normal. Solid organs: Liver is normal in size and enhancement. Gallbladder is surgically absent. Biliary system is non-dilated. Pancreas enhances normally. Spleen is normal in size and enhancement. No adrenal nodules. Kidneys are normal in size and enhancement, without hydronephrosis. Peritoneum and bowel: Stomach, small bowel, and colon loops are normal in caliber and wall thickness. No free fluid or air. The visualized appendix is normal. Nodes and vessels: No retroperitoneal or mesenteric adenopathy. Aorta and inferior vena cava are normal in caliber. Miscellaneous: No ventral hernias. PELVIS: Genitourinary: Bladder wall thickness is normal. Miscellaneous: No inguinal hernias or adenopathy. Bones: No suspicious bony lesions. No vertebral body compression fractures. IMPRESSION: 1. No acute disease process. 2. The appendix is normal. 3. No free fluid or free air. 4. No dilated loops of bowel. 5. Status post cholecystectomy. Dictated by: Karyn Pierson MD, PhD on 09/02/2018 at 16:46 Approved by: Karyn Pierson MD, PhD on 09/02/2018 at 16:52 <Lalita De La Torre, - Last Filed: 09/03/18 18:05> Lab Data Lab Results 09/02/18 09/02/18 09/02/18 Range/Units 14:40 14:40 14:40 WBC 15.8 H (4.5-11.0) X10^3/uL RBC 5.50 (4.5-5.9) X10^6/uL Hgb 15.2 (13.5-17.5) g/dL Hct 45.9 (41-53) % MCV 83.4 (80-100) fL MCH 27.6 (26-34) PG MCHC 33.0 (30-36) % RDW 13.7 (11.6-14.8) % Plt Count 471 H (150-400) X10^3/uL Neut % (Auto) 76.3 H (50-75) % Lymph % (Auto) 15.5 L (25-40) % [place] % (Auto) 6.4 (3-14) % Eos % (Auto) 1.1 L (2-4) % Baso % (Auto) 0.7 (0-2) % Neut # (Auto) 38240 H (1276-4632) /uL Lymph # (Auto) 2400 (8803-7350) /uL [place] # (Auto) 1000 H (0-900) /uL Eos # (Auto) 200 (0-450) /uL Baso # (Auto) 100 (0-100) /uL PT 12.4 (10.1-12.7) SECONDS INR 1.1 (0.9-1.3) APTT 28 D (26.4-36.2) SECONDS Sodium (137-145) mmol/L Potassium (3.4-5.1) mmol/L Chloride (98-107) mmol/L Carbon Dioxide (22-32) mmol/L BUN (9-20) mg/dL Creatinine (0.66-1.25) mg/dL Estimated GFR (>60) mL/min BUN/Creatinine Ratio (6-22) Glucose (70-100) mg/dL Lactate (0.7-2.1) mmol/L Calcium (8.4-10.2) mg/dL Total Bilirubin (0.2-1.3) mg/dL AST (17-59) IU/L ALT (21-72) IU/L Alkaline Phosphatase (38-126) U/L Total Protein (6.3-8.2) g/dL Albumin (3.5-5.0) g/dL Globulin (1.7-4.1) g/dL Albumin/Globulin Ratio (1.0-2.8) Lipase (23-300) U/L Procalcitonin < 0.05 (<0.5) ng/mL 09/02/18 09/02/18 Range/Units 14:40 14:40 WBC (4.5-11.0) X10^3/uL RBC (4.5-5.9) X10^6/uL Hgb (13.5-17.5) g/dL Hct (41-53) % MCV (80-100) fL MCH (26-34) PG MCHC (30-36) % RDW (11.6-14.8) % Plt Count (150-400) X10^3/uL Neut % (Auto) (50-75) % Lymph % (Auto) (25-40) % [place] % (Auto) (3-14) % Eos % (Auto) (2-4) % Baso % (Auto) (0-2) % Neut # (Auto) (3338-2681) /uL Lymph # (Auto) (7710-9691) /uL [place] # (Auto) (0-900) /uL Eos # (Auto) (0-450) /uL Baso # (Auto) (0-100) /uL PT (10.1-12.7) SECONDS INR (0.9-1.3) APTT (26.4-36.2) SECONDS Sodium 141 (137-145) mmol/L Potassium 4.3 (3.4-5.1) mmol/L Chloride 99 (98-107) mmol/L Carbon Dioxide 26 (22-32) mmol/L BUN 14 (9-20) mg/dL Creatinine 0.80 (0.66-1.25) mg/dL Estimated GFR > 60.0 (>60) mL/min BUN/Creatinine Ratio 17.5 (6-22) Glucose 99 (70-100) mg/dL Lactate 1.9 (0.7-2.1) mmol/L Calcium 10.2 (8.4-10.2) mg/dL Total Bilirubin 0.8 (0.2-1.3) mg/dL AST 22 (17-59) IU/L ALT 37 (21-72) IU/L Alkaline Phosphatase 102 (38-126) U/L Total Protein 8.8 H (6.3-8.2) g/dL Albumin 4.9 (3.5-5.0) g/dL Globulin 3.9 (1.7-4.1) g/dL Albumin/Globulin Ratio 1.3 (1.0-2.8) Lipase 48 (23-300) U/L Procalcitonin (<0.5) ng/mL Point of care testing: Urine Dip Bedside Urine Glucose Negative Bedside Urine Bilirubin - Negative Bedside Urine Ketone - Negative Urine Specific [place] 1.010 Bedside Urine Occult Blood - Negative Bedside Urine pH 7.5 Bedside Urine Protein - Negative Bedside Urine Urobilinogen - Negative Bedside Urine Nitrite - Negative Bedside Urine Leukocytes - Negative Esterase ABG Data Interpretation: Young Cohn 32 M [address] [address] [address] Scan Report Signed Patient: Cohn,Young VARGHESER#: [id number] : 1985Acct:[id number] Age/Sex: 32 / MDate of Service: 09/02/18 Loc: ED Accession Number: [id number] Procedure: CT abdomen pelvis w con Ordering Provider: Lalita De La Torre D.O. PROCEDURE: CT ABDOMEN PELVIS W CON INDICATIONS: recent lap quique, abdominal pain TECHNIQUE: After the administration of oral and intravenous contrast, 5 mm thick sections acquired from the diaphragms to the symphysis. 5 mm thick coronal and sagittal reformats were performed. For radiation dose reduction, the following was used: automated exposure control, adjustment of mA and/or kV according to patient size. COMPARISON: None. FINDINGS: Image quality: Excellent. ABDOMEN: Lung bases: Lung bases are clear. Heart size is normal. Solid organs: Liver is normal in size and enhancement. Gallbladder is surgically absent. Biliary system is non-dilated. Pancreas enhances normally. Spleen is normal in size and enhancement. No adrenal nodules. Kidneys are normal in size and enhancement, without hydronephrosis. Peritoneum and bowel: Stomach, small bowel, and colon loops are normal in caliber and wall thickness. No free fluid or air. The visualized appendix is normal. Nodes and vessels: No retroperitoneal or mesenteric adenopathy. Aorta and inferior vena cava are normal in caliber. Miscellaneous: No ventral hernias. PELVIS: Genitourinary: Bladder wall thickness is normal. Miscellaneous: No inguinal hernias or adenopathy. Bones: No suspicious bony lesions. No vertebral body compression fractures. IMPRESSION: 1. No acute disease process. 2. The appendix is normal. 3. No free fluid or free air. 4. No dilated loops of bowel. 5. Status post cholecystectomy. Dictated by: Karyn Pierson MD, PhD on 09/02/2018 at 16:46 Approved by: Karyn Pierson MD, PhD on 09/02/2018 at 16:52 Discharge Plan Departure Patient Disposition: Home Clinical Impression: Postoperative abdominal pain Nausea & vomiting Qualifiers: Vomiting type: unspecified Vomiting Intractability: non-intractable Qualified Code(s): R11.2 - Nausea with vomiting, unspecified Discharge Date/Time: 09/02/18 19:14 Interventions: ED Discharge Assessment Last Done: 09/02/18 19:12 Instructions: DI for Abdominal Pain-Adult, Nausea and Vomiting-Adult Activity Restrictions/Additional Instructions: Please return as we talked about if you are feeling acutely worse over the weekend, or if you can not keep down any food or fluids. Please take the antinausea medicine as needed, drink clear fluids this evening, and have a small amount of bland food such as clear broth, white rice, banana, applesauce, plain white toast or saltines every hour or 2. If you are tolerating these well by tomorrow, then you can try a baked potato without the skin or some pasta. If you do okay with these, you can try cheese and yogurt and baked chicken without the skin. Slowly advance back to her regular diet as you are feeling better. Continue ibuprofen 800 mg every 8 hours for your pain and you can add the oxycodone/acetaminophen as needed. Be sure not to drive if you are taking that as it may make you sleepy. Please call Dr. Hernandez his office on Wednesday as he want to to check in with him then Prescriptions: New oxycodone-acetaminophen 5-325 mg tablet 1 tab PO Q4-6H PRN (Reason: postoperative pain) Qty: 12 RF: 0 ondansetron 4 mg tablet,disintegrating 4 mg PO Q8H PRN (Reason: nausea and vomiting) Qty: 12 RF: 0 No Action ibuprofen 800 mg tablet 800 mg PO BID RF: 0 cetirizine [Zyrtec] 10 mg Tablet 10 mg PO DAILY RF: 0 bismuth subsalicylate [Pepto-Bismol] 262 mg/15 mL Suspension 1 dose PO .ONCE RF: 0 albuterol sulfate 90 mcg/actuation Hfa Aerosol Inhaler 2 puff INHALATION PRN PRN (Reason: Shortness Of Breath) RF: 0 Tums 1 tab PO .ONCE RF: 0 Referrals: Trevon Hernandez MD [Physician] - <Lalita De La Torre DO - Last Filed: 09/03/18 18:05> Cosign ED Attending Cosignature Attestation: I was immediately available in the department for consultation. This documentation has been reviewed and I agree with assessment and plan. Supervised by Lalita De La Torre DO
[2018-09-02] MEDS: SODIUM CHLORIDE 0.9% 1,000 ML 1000 ML IV (16:53)
--- NOTE | 2018-09-02 17:01 | ED_ITS ---
HPI - Abdominal Pain <Phoebe Hoskins PA-C - Last Filed: 09/02/18 22:05> General Chief Complaint: Abdominal Pain Stated Complaint: stomach pain Time Seen by Provider: 09/02/18 15:48 Source: patient Mode of arrival: ambulatory Limitations: no limitations History of Present Illness HPI narrative: This 32-year-old male who is six days status post lap quique is sent by Dr. Hernandez for further evaluation of abdominal pain and nausea. He states that he seemed to be doing fine for the 1st few days after hospital discharge, but 48 hours ago developed nausea and pain. He states that there is some constant discomfort but pain and nausea worsen in waves. He states he has been vomiting each morning at 5:00 a.m., but nausea last throughout the day. He has tried to eat bland food but states a lot of that comes up in the morning. He states abdominal pain is fairly diffuse but more noticeable on the right side. He denies any flank pain. He states he had a small bowel movement today and a little bit of diarrhea prior. No blood in the stools. He denies any dysuria or hematuria. He denies any other recent illness or known exposures. Dr. Hernandez wanted to evaluate for postoperative complications and unable to get CT as an outpatient so sent here for evaluation. Patient has been taking ibuprofen at home, last a couple of days ago since he has not been able to keep down food. He does not have other pain or nausea medication at home and states he did not need this initially Related Data Home Medications Medication Instructions Recorded Confirmed Tums 1 tab PO .ONCE 08/26/18 08/26/18 albuterol sulfate 2 puff INHALATION PRN PRN 08/26/18 08/26/18 bismuth subsalicylate 1 dose PO .ONCE 08/26/18 08/26/18 [Pepto-Bismol] cetirizine [Zyrtec] 10 mg PO DAILY 08/26/18 08/26/18 ibuprofen 800 mg tablet 800 mg PO BID 09/02/18 09/02/18 Previous Rx's Medication Instructions Recorded ondansetron 4 mg PO Q8H PRN #12 tab 09/02/18 oxycodone-acetaminophen 1 tab PO Q4-6H PRN #12 tab 09/02/18 Allergies Allergy/AdvReac Type Severity Reaction Status Date / Time egg yolk [EGG YOLK] Allergy Unknown Verified 09/02/18 13:52 penicillin V [PENICILLIN V] Allergy Unknown Verified 09/02/18 13:52 venom-honey bee Allergy Unknown Verified 09/02/18 13:52 [BEE VENOM (HONEY BEE)] hornet venom Allergy Verified 09/02/18 14:49 Review of Systems <Phoebe Hoskins PA-C - Last Filed: 09/02/18 22:05> Review of Systems ROS Unobtainable: All systems reviewed & are unremarkable except as noted in HPI and below PFSH <Phoebe Hoskins PA-C - Last Filed: 09/02/18 22:05> Medical History (Updated 09/02/18 @ 19:01 by Phoebe Hoskins PA-C) Asthma (Chronic) Healthy adult (Chronic) Surgical History (Updated 09/02/18 @ 17:30 by Phoebe Hoskins PA-C) Hx laparoscopic cholecystectomy (Acute) Social History marital status: details: 5 month old, daughter. Born premature corrected is 3 months number of children: 1 household members: significant other Smoking Status: Never smoker alcohol intake: current substance use type: does not use Social History marital status: details: 5 month old, daughter. Born premature corrected is 3 months number of children: 1 household members: significant other Smoking Status: Never smoker alcohol intake: current substance use type: does not use Exam <Phoebe Hoskins PA-C - Last Filed: 09/02/18 22:05> Narrative Exam Narrative: GENERAL APPEARANCE: Patient sitting comfortably, in no distress. HEENT: PERRL, EOMI, no scleral icterus NECK: Supple LUNGS: Clear to auscultation bilaterally. HEART: Rate and rhythm regular, normal S1 and S2, no S3 or S4. ABDOMEN: Soft, nondistended, bowel sounds present x 4 quadrants, no masses palpable, no hepatosplenomegaly. moderate generalized tenderness to palpation most prominent on the right midline to lower quadrants, less in the left lower quadrant. No guarding or rebound. No CVAT EXTREMITIES: No edema DERMATOLOGIC: No jaundice or exanthem. Surgical incision sites clean, dry, and intact, normal skin surrounding NEUROLOGIC: Alert and oriented with normal speech and coordination Initial Vital Signs Initial Vital Signs: Vital Signs Temperature 99.0 F 09/02/18 14:30 Pulse Rate 99 H 09/02/18 14:30 Respiratory Rate 24 09/02/18 14:30 Blood Pressure 131/93 H 09/02/18 14:30 Pulse Oximetry 97 09/02/18 14:30 <Lalita De La Torre DO - Last Filed: 09/03/18 18:05> Initial Vital Signs Initial Vital Signs: Vital Signs Temperature 99.0 F 09/02/18 14:30 Pulse Rate 99 H 09/02/18 14:30 Respiratory Rate 24 09/02/18 14:30 Blood Pressure 131/93 H 09/02/18 14:30 Pulse Oximetry 97 09/02/18 14:30 Course <Phoebe Hoskins PA-C - Last Filed: 09/02/18 22:05> Additional Information: The patient is feeling improved at the time of discharge, tolerating crackers and water. He did not require opioid pain medication while here in the department but was given a prescription for oxycodone/acetaminophen to have at home if needed for the weekend along with Zofran. Advised on return precautions and he will call Dr. Hernandez's office on Wednesday. Orders Ordered: Discontinued Medications Sodium Chloride (Normal Saline 0.9%) 1,000 mls @ 1,000 mls/hr IV BOLUS ONE Stop: 09/02/18 15:46 Last Infusion: 09/02/18 17:49 Dose: 0 mls/hr Admin: 09/02/18 16:53 Dose: 1,000 mls/hr Ketorolac Tromethamine (Toradol) 30 mg IV NOW ONE Stop: 09/02/18 17:20 Last Admin: 09/02/18 17:25 Dose: 30 mg Ondansetron HCl (Zofran) 4 mg IV NOW ONE Stop: 09/02/18 14:54 Last Admin: 09/02/18 14:57 Dose: 4 mg Ondansetron HCl (Zofran) 4 mg IV NOW ONE Stop: 09/02/18 17:20 Last Admin: 09/02/18 17:26 Dose: 4 mg Vital Signs - 8 hr 09/02/18 14:30 09/02/18 17:30 09/02/18 18:30 Temperature 99.0 F Pulse Rate 99 H 93 H 92 H Respiratory Rate 24 18 18 Blood Pressure 131/93 H Blood Pressure [Right Arm] 116/54 L 118/69 Pulse Oximetry 97 94 99 09/02/18 19:00 09/02/18 19:12 Temperature Pulse Rate 88 94 H Respiratory Rate 18 Blood Pressure 109/61 Blood Pressure [Right Arm] 109/61 Pulse Oximetry 97 98 <Lalita De La Torre DO - Last Filed: 09/03/18 18:05> Orders Ordered: Discontinued Medications Sodium Chloride (Normal Saline 0.9%) 1,000 mls @ 1,000 mls/hr IV BOLUS ONE Stop: 09/02/18 15:46 Last Infusion: 09/02/18 17:49 Dose: 0 mls/hr Admin: 09/02/18 16:53 Dose: 1,000 mls/hr Ketorolac Tromethamine (Toradol) 30 mg IV NOW ONE Stop: 09/02/18 17:20 Last Admin: 09/02/18 17:25 Dose: 30 mg Ondansetron HCl (Zofran) 4 mg IV NOW ONE Stop: 09/02/18 14:54 Last Admin: 09/02/18 14:57 Dose: 4 mg Ondansetron HCl (Zofran) 4 mg IV NOW ONE Stop: 09/02/18 17:20 Last Admin: 09/02/18 17:26 Dose: 4 mg Vital Signs - 8 hr 09/02/18 14:30 09/02/18 17:30 09/02/18 18:30 Temperature 99.0 F Pulse Rate 99 H 93 H 92 H Respiratory Rate 24 18 18 Blood Pressure 131/93 H Blood Pressure [Right Arm] 116/54 L 118/69 Pulse Oximetry 97 94 99 09/02/18 19:00 09/02/18 19:12 Temperature Pulse Rate 88 94 H Respiratory Rate 18 Blood Pressure 109/61 Blood Pressure [Right Arm] 109/61 Pulse Oximetry 97 98 MDM - Abdominal Pain <Phoebe Hoskins PA-C - Last Filed: 09/02/18 22:05> Lab Data Attestation: I reviewed the patient's lab results. Result diagrams: 09/02/18 14:40 09/02/18 14:40 Lab Results 09/02/18 09/02/18 09/02/18 Range/Units 14:40 14:40 14:40 WBC 15.8 H (4.5-11.0) X10^3/uL RBC 5.50 (4.5-5.9) X10^6/uL Hgb 15.2 (13.5-17.5) g/dL Hct 45.9 (41-53) % MCV 83.4 (80-100) fL MCH 27.6 (26-34) PG MCHC 33.0 (30-36) % RDW 13.7 (11.6-14.8) % Plt Count 471 H (150-400) X10^3/uL Neut % (Auto) 76.3 H (50-75) % Lymph % (Auto) 15.5 L (25-40) % [place] % (Auto) 6.4 (3-14) % Eos % (Auto) 1.1 L (2-4) % Baso % (Auto) 0.7 (0-2) % Neut # (Auto) 79565 H (2127-4412) /uL Lymph # (Auto) 2400 (5401-2149) /uL [place] # (Auto) 1000 H (0-900) /uL Eos # (Auto) 200 (0-450) /uL Baso # (Auto) 100 (0-100) /uL PT 12.4 (10.1-12.7) SECONDS INR 1.1 (0.9-1.3) APTT 28 D (26.4-36.2) SECONDS Sodium (137-145) mmol/L Potassium (3.4-5.1) mmol/L Chloride (98-107) mmol/L Carbon Dioxide (22-32) mmol/L BUN (9-20) mg/dL Creatinine (0.66-1.25) mg/dL Estimated GFR (>60) mL/min BUN/Creatinine Ratio (6-22) Glucose (70-100) mg/dL Lactate (0.7-2.1) mmol/L Calcium (8.4-10.2) mg/dL Total Bilirubin (0.2-1.3) mg/dL AST (17-59) IU/L ALT (21-72) IU/L Alkaline Phosphatase (38-126) U/L Total Protein (6.3-8.2) g/dL Albumin (3.5-5.0) g/dL Globulin (1.7-4.1) g/dL Albumin/Globulin Ratio (1.0-2.8) Lipase (23-300) U/L Procalcitonin < 0.05 (<0.5) ng/mL 09/02/18 09/02/18 Range/Units 14:40 14:40 WBC (4.5-11.0) X10^3/uL RBC (4.5-5.9) X10^6/uL Hgb (13.5-17.5) g/dL Hct (41-53) % MCV (80-100) fL MCH (26-34) PG MCHC (30-36) % RDW (11.6-14.8) % Plt Count (150-400) X10^3/uL Neut % (Auto) (50-75) % Lymph % (Auto) (25-40) % [place] % (Auto) (3-14) % Eos % (Auto) (2-4) % Baso % (Auto) (0-2) % Neut # (Auto) (6736-6953) /uL Lymph # (Auto) (4015-3003) /uL [place] # (Auto) (0-900) /uL Eos # (Auto) (0-450) /uL Baso # (Auto) (0-100) /uL PT (10.1-12.7) SECONDS INR (0.9-1.3) APTT (26.4-36.2) SECONDS Sodium 141 (137-145) mmol/L Potassium 4.3 (3.4-5.1) mmol/L Chloride 99 (98-107) mmol/L Carbon Dioxide 26 (22-32) mmol/L BUN 14 (9-20) mg/dL Creatinine 0.80 (0.66-1.25) mg/dL Estimated GFR > 60.0 (>60) mL/min BUN/Creatinine Ratio 17.5 (6-22) Glucose 99 (70-100) mg/dL Lactate 1.9 (0.7-2.1) mmol/L Calcium 10.2 (8.4-10.2) mg/dL Total Bilirubin 0.8 (0.2-1.3) mg/dL AST 22 (17-59) IU/L ALT 37 (21-72) IU/L Alkaline Phosphatase 102 (38-126) U/L Total Protein 8.8 H (6.3-8.2) g/dL Albumin 4.9 (3.5-5.0) g/dL Globulin 3.9 (1.7-4.1) g/dL Albumin/Globulin Ratio 1.3 (1.0-2.8) Lipase 48 (23-300) U/L Procalcitonin (<0.5) ng/mL Point of care testing: Urine Dip Bedside Urine Glucose Negative Bedside Urine Bilirubin - Negative Bedside Urine Ketone - Negative Urine Specific [place] 1.010 Bedside Urine Occult Blood - Negative Bedside Urine pH 7.5 Bedside Urine Protein - Negative Bedside Urine Urobilinogen - Negative Bedside Urine Nitrite - Negative Bedside Urine Leukocytes - Negative Esterase Imaging Data CT scan - abdomen: Radiologist's impression: 26 Phoebe Hoskins PA-C Find Patient Imaging Young Cohn 32 M 1985 ACTIVITY DATE EXAM STATUS AUTHOR 09/02/18 15:48 [place] [address] CT Scan Report Signed Patient: Young Cohn R#: [id number] : 1985Acct:[id number] Age/Sex: 32 / MDate of Service: 09/02/18 Loc: ED Accession Number: [id number] Procedure: CT abdomen pelvis w con Ordering Provider: Lalita De La Torre D.O. PROCEDURE: CT ABDOMEN PELVIS W CON INDICATIONS: recent lap quique, abdominal pain TECHNIQUE: After the administration of oral and intravenous contrast, 5 mm thick sections acquired from the diaphragms to the symphysis. 5 mm thick coronal and sagittal reformats were performed. For radiation dose reduction, the following was used: automated exposure control, adjustment of mA and/or kV according to patient size. COMPARISON: None. FINDINGS: Image quality: Excellent. ABDOMEN: Lung bases: Lung bases are clear. Heart size is normal. Solid organs: Liver is normal in size and enhancement. Gallbladder is surgically absent. Biliary system is non-dilated. Pancreas enhances normally. Spleen is normal in size and enhancement. No adrenal nodules. Kidneys are normal in size and enhancement, without hydronephrosis. Peritoneum and bowel: Stomach, small bowel, and colon loops are normal in calib er and wall thickness. No free fluid or air. The visualized appendix is normal. Nodes and vessels: No retroperitoneal or mesenteric adenopathy. Aorta and inferior vena cava are normal in caliber. Miscellaneous: No ventral hernias. PELVIS: Genitourinary: Bladder wall thickness is normal. Miscellaneous: No inguinal hernias or adenopathy. Bones: No suspicious bony lesions. No vertebral body compression fractures. IMPRESSION: 1. No acute disease process. 2. The appendix is normal. 3. No free fluid or free air. 4. No dilated loops of bowel. 5. Status post cholecystectomy. Dictated by: Karyn Pierson MD, PhD on 09/02/2018 at 16:46 Approved by: Karyn Pierson MD, PhD on 09/02/2018 at 16:52 <Lalita De La Torre, - Last Filed: 09/03/18 18:05> Lab Data Lab Results 09/02/18 09/02/18 09/02/18 Range/Units 14:40 14:40 14:40 WBC 15.8 H (4.5-11.0) X10^3/uL RBC 5.50 (4.5-5.9) X10^6/uL Hgb 15.2 (13.5-17.5) g/dL Hct 45.9 (41-53) % MCV 83.4 (80-100) fL MCH 27.6 (26-34) PG MCHC 33.0 (30-36) % RDW 13.7 (11.6-14.8) % Plt Count 471 H (150-400) X10^3/uL Neut % (Auto) 76.3 H (50-75) % Lymph % (Auto) 15.5 L (25-40) % [place] % (Auto) 6.4 (3-14) % Eos % (Auto) 1.1 L (2-4) % Baso % (Auto) 0.7 (0-2) % Neut # (Auto) 10146 H (5209-7276) /uL Lymph # (Auto) 2400 (8017-6619) /uL [place] # (Auto) 1000 H (0-900) /uL Eos # (Auto) 200 (0-450) /uL Baso # (Auto) 100 (0-100) /uL PT 12.4 (10.1-12.7) SECONDS INR 1.1 (0.9-1.3) APTT 28 D (26.4-36.2) SECONDS Sodium (137-145) mmol/L Potassium (3.4-5.1) mmol/L Chloride (98-107) mmol/L Carbon Dioxide (22-32) mmol/L BUN (9-20) mg/dL Creatinine (0.66-1.25) mg/dL Estimated GFR (>60) mL/min BUN/Creatinine Ratio (6-22) Glucose (70-100) mg/dL Lactate (0.7-2.1) mmol/L Calcium (8.4-10.2) mg/dL Total Bilirubin (0.2-1.3) mg/dL AST (17-59) IU/L ALT (21-72) IU/L Alkaline Phosphatase (38-126) U/L Total Protein (6.3-8.2) g/dL Albumin (3.5-5.0) g/dL Globulin (1.7-4.1) g/dL Albumin/Globulin Ratio (1.0-2.8) Lipase (23-300) U/L Procalcitonin < 0.05 (<0.5) ng/mL 09/02/18 09/02/18 Range/Units 14:40 14:40 WBC (4.5-11.0) X10^3/uL RBC (4.5-5.9) X10^6/uL Hgb (13.5-17.5) g/dL Hct (41-53) % MCV (80-100) fL MCH (26-34) PG MCHC (30-36) % RDW (11.6-14.8) % Plt Count (150-400) X10^3/uL Neut % (Auto) (50-75) % Lymph % (Auto) (25-40) % [place] % (Auto) (3-14) % Eos % (Auto) (2-4) % Baso % (Auto) (0-2) % Neut # (Auto) (9051-8692) /uL Lymph # (Auto) (8391-9053) /uL [place] # (Auto) (0-900) /uL Eos # (Auto) (0-450) /uL Baso # (Auto) (0-100) /uL PT (10.1-12.7) SECONDS INR (0.9-1.3) APTT (26.4-36.2) SECONDS Sodium 141 (137-145) mmol/L Potassium 4.3 (3.4-5.1) mmol/L Chloride 99 (98-107) mmol/L Carbon Dioxide 26 (22-32) mmol/L BUN 14 (9-20) mg/dL Creatinine 0.80 (0.66-1.25) mg/dL Estimated GFR > 60.0 (>60) mL/min BUN/Creatinine Ratio 17.5 (6-22) Glucose 99 (70-100) mg/dL Lactate 1.9 (0.7-2.1) mmol/L Calcium 10.2 (8.4-10.2) mg/dL Total Bilirubin 0.8 (0.2-1.3) mg/dL AST 22 (17-59) IU/L ALT 37 (21-72) IU/L Alkaline Phosphatase 102 (38-126) U/L Total Protein 8.8 H (6.3-8.2) g/dL Albumin 4.9 (3.5-5.0) g/dL Globulin 3.9 (1.7-4.1) g/dL Albumin/Globulin Ratio 1.3 (1.0-2.8) Lipase 48 (23-300) U/L Procalcitonin (<0.5) ng/mL Point of care testing: Urine Dip Bedside Urine Glucose Negative Bedside Urine Bilirubin - Negative Bedside Urine Ketone - Negative Urine Specific [place] 1.010 Bedside Urine Occult Blood - Negative Bedside Urine pH 7.5 Bedside Urine Protein - Negative Bedside Urine Urobilinogen - Negative Bedside Urine Nitrite - Negative Bedside Urine Leukocytes - Negative Esterase ABG Data Interpretation: Young Cohn 32 M [address] [address] [address] Scan Report Signed Patient: Cohn,Young JMR#: [id number] : 1985Acct:[id number] Age/Sex: 32 / MDate of Service: 09/02/18 Loc: ED Accession Number: [id number] Procedure: CT abdomen pelvis w con Ordering Provider: Lalita De La Torre D.O. PROCEDURE: CT ABDOMEN PELVIS W CON INDICATIONS: recent lap quique, abdominal pain TECHNIQUE: After the administration of oral and intravenous contrast, 5 mm thick sections acquired from the diaphragms to the symphysis. 5 mm thick coronal and sagittal reformats were performed. For radiation dose reduction, the following was used: automated exposure control, adjustment of mA and/or kV according to patient size. COMPARISON: None. FINDINGS: Image quality: Excellent. ABDOMEN: Lung bases: Lung bases are clear. Heart size is normal. Solid organs: Liver is normal in size and enhancement. Gallbladder is surgically absent. Biliary system is non-dilated. Pancreas enhances normally. Spleen is normal in size and enhancement. No adrenal nodules. Kidneys are normal in size and enhancement, without hydronephrosis. Peritoneum and bowel: Stomach, small bowel, and colon loops are normal in caliber and wall thickness. No free fluid or air. The visualized appendix is normal. Nodes and vessels: No retroperitoneal or mesenteric adenopathy. Aorta and inferior vena cava are normal in caliber. Miscellaneous: No ventral hernias. PELVIS: Genitourinary: Bladder wall thickness is normal. Miscellaneous: No inguinal hernias or adenopathy. Bones: No suspicious bony lesions. No vertebral body compression fractures. IMPRESSION: 1. No acute disease process. 2. The appendix is normal. 3. No free fluid or free air. 4. No dilated loops of bowel. 5. Status post cholecystectomy. Dictated by: Karyn Pierson MD, PhD on 09/02/2018 at 16:46 Approved by: Karyn Pierson MD, PhD on 09/02/2018 at 16:52 Discharge Plan Departure Patient Disposition: Home Clinical Impression: Postoperative abdominal pain Nausea & vomiting Qualifiers: Vomiting type: unspecified Vomiting Intractability: non-intractable Qualified Code(s): R11.2 - Nausea with vomiting, unspecified Discharge Date/Time: 09/02/18 19:14 Interventions: ED Discharge Assessment Last Done: 09/02/18 19:12 Instructions: DI for Abdominal Pain-Adult, Nausea and Vomiting-Adult Activity Restrictions/Additional Instructions: Please return as we talked about if you are feeling acutely worse over the weekend, or if you can not keep down any food or fluids. Please take the antinausea medicine as needed, drink clear fluids this evening, and have a small amount of bland food such as clear broth, white rice, banana, applesauce, plain white toast or saltines every hour or 2. If you are tolerating these well by tomorrow, then you can try a baked potato without the skin or some pasta. If you do okay with these, you can try cheese and yogurt and baked chicken without the skin. Slowly advance back to her regular diet as you are feeling better. Continue ibuprofen 800 mg every 8 hours for your pain and you can add the oxycodone/acetaminophen as needed. Be sure not to drive if you are taking that as it may make you sleepy. Please call Dr. Hernandez his office on Wednesday as he want to to check in with him then Prescriptions: New oxycodone-acetaminophen 5-325 mg tablet 1 tab PO Q4-6H PRN (Reason: postoperative pain) Qty: 12 RF: 0 ondansetron 4 mg tablet,disintegrating 4 mg PO Q8H PRN (Reason: nausea and vomiting) Qty: 12 RF: 0 No Action ibuprofen 800 mg tablet 800 mg PO BID RF: 0 cetirizine [Zyrtec] 10 mg Tablet 10 mg PO DAILY RF: 0 bismuth subsalicylate [Pepto-Bismol] 262 mg/15 mL Suspension 1 dose PO .ONCE RF: 0 albuterol sulfate 90 mcg/actuation Hfa Aerosol Inhaler 2 puff INHALATION PRN PRN (Reason: Shortness Of Breath) RF: 0 Tums 1 tab PO .ONCE RF: 0 Referrals: Trevon Hernandez MD [Physician] - <Lalita De La Torre DO - Last Filed: 09/03/18 18:05> Cosign ED Attending Cosignature Attestation: I was immediately available in the department for consultation. This documentation has been reviewed and I agree with assessment and plan. Supervised by Lalita De La Torre DO
[2018-09-02] MEDS: KETOROLAC 60 MG/2 ML VIAL 30 MG IV (17:25)
[2018-09-02 17:30] VITALS: BP 116/54; PULSE 93; RESP 18; O2SAT 94
[2018-09-02 18:30] VITALS: BP 118/69; PULSE 92; RESP 18; O2SAT 99
[2018-09-02 19:00] VITALS: BP 109/61; PULSE 88; RESP 18; O2SAT 97
[2018-09-02 19:12] VITALS: BP 109/61; PULSE 94; O2SAT 98
== END 2018-09-02 19:14 | disposition home or self-care (01) ==
PROVIDERS: Emergency Medicine; Emergency Provider Internal Medicine
DX: G89.18 Other acute postprocedural pain (principal); R10.9 Unspecified abdominal pain; R11.2 Nausea with vomiting, unspecified; Z90.49 Acquired absence of other specified parts of digestive tract
CPT/HCPCS: 36591; 74177; 80053; 81003; 83605; 83690; 84145; 85025; 85610; 85730; 87040; 96361; 96374; 96375; 96376; 99283; 99285; J1885; J2405; Q9967